=== PATIENT | female | born 1940 | race Caucasian/White ===

== ENCOUNTER 2017-06-23 07:00 | Observation (INO) | payer MEDICARE ==
--- NOTE | 2017-06-14 14:33 | HP ---
Amended report to correct patient account number. CC: Martha Mota MD; [facility] * PREOPERATIVE HISTORY AND PHYSICAL: DATE OF ADMISSION: 06/23/17 This patient is scheduled for same-day surgery with overnight extension by Dr. Jolly on 06/23/17. ATTENDING SURGEON: Renee Jolly MD * (dictated by Rosalia Jewell NP). CHIEF COMPLAINT: Right breast cancer and left breast cancer. HISTORY OF PRESENT ILLNESS: The patient is a 77-year-old female first evaluated by Dr. Jolly, 04/18/17. At that time, the patient complained of noticing a "dent" in the right breast. She also reported lumpiness on the lateral side of the right breast. She denied any breast pain. She does not have a family history of breast cancer. Menarche at age 13, menopause at age 42 was surgical. She had a hysterectomy and unilateral oophorectomy. First delivery was at age 17[address] Jolly examined the patient and noted a palpable right breast mass and performed core biopsy, which revealed invasive lobular adenocarcinoma. She was sent for an MRI of both breasts on 05/18/17. There was no radiographic abnormalities seen in the right breast, but the MRI revealed a left breast mass and therefore, she underwent left breast ultrasound- guided biopsy of a solid nodule at the 10 o'clock position, which revealed invasive ductal adenocarcinoma. Dr. Jolly reviewed the findings with the patient and has recommended right mastectomy and sono-guided needle localization excision of the left breast cancer and bilateral sentinel lymph node biopsies. Dr. Jolly described the nature of the surgical procedure, the rationale for the procedure, the relevant risks and benefits, the overnight stay in the hospital and the use of a Domenic-Locke drain. I also reviewed postoperative care and LOUISA drain management. The patient has had a chance to ask questions and stated that she understands the information and is satisfied with the answers given to her questions. She will sign surgical consent on the day of surgery. PAST MEDICAL HISTORY: Significant for hypertension, dyslipidemia, PAC's when she had a low potassium, COPD, former smoker, melanoma right lower extremity and mild cognitive impairment. PAST SURGICAL HISTORY: Hysterectomy and oophorectomy in 1982, left thumb surgery in 1984, excision of melanoma right lower extremity in 2006, YAG iridotomy both eyes in 2008, cataract extraction both eyes in 2013, and laparoscopic cholecystectomy in 2014. OBSTETRIC HISTORY: 2, para 2. MEDICATIONS: 1. Levothyroxine 100 mcg p.o. daily in the morning. 2. Nabumetone 750 mg one-half tablet b.i.d. 3. Omeprazole 20 mg p.o. b.i.d. 4. Amlodipine 5 mg p.o. daily in the evening. 5. Simvastatin 20 mg p.o. daily. 6. Orphenadrine 150 mg 1 tablet b.i.d. p.r.n., and that is a muscle relaxant. 7. Ibandronate 150 mg by mouth monthly. 8. Potassium 99 mg daily. 9. Cranberry supplement daily. 10. Vitamin C 1000 mg daily. 11. Vitamin D3, 1000 international units daily. 12. Calcium with vitamin D supplement daily. 13. She has a Ventolin inhaler 2 puffs 4 times a day p.r.n. and she is not currently using it. ALLERGIES: CHLORAPREP caused severe skin rash, status post laparoscopic cholecystectomy; VISIPAQUE caused rash; PROHANCE caused rash. FAMILY HISTORY: Mother with history of COPD, some type of cancer. Father with myocardial infarction. The patient's son has hemophilia and other male relatives are hemophilic. No known anesthesia complications or history of blood clots in the family. SOCIAL HISTORY: She is and lives alone, and is retired from human resources. She is a former smoker. She denies the use of alcohol or other substances; her son will be bringing her on the day of surgery. REVIEW OF SYSTEMS: Constitutional: No fevers, chills, excessive fatigue, or weight loss. Endocrine: No diabetes, she is on thyroid replacement. Hematologic: No easy bruising; she states that after excision of the melanoma, she had excessive bleeding and was readmitted to the hospital. She does not think she has ever had a blood transfusion. Respiratory: Former smoker, history of COPD, no chronic cough, no recent upper respiratory symptoms. Cardiovascular: She is followed by Dr. Pryor, please see the attached cardiology note from 06/07/17; she has had symptomatic PAC's in the past, improved with potassium corrected from 3.2, no recent PAC symptoms. She was having episodes of vague chest discomfort at rest for a few seconds at a time relieved with standing and stretching, it is not exertional, pleuritic or reproducible. There has been no edema, palpitations or syncope and her EKG in Dr. Pryor's office showed normal sinus rhythm. Echocardiogram in 2013 revealed LV size and function with an ejection fraction of 55% to 60%. She had a normal stress test in 2013. Gastrointestinal: No nausea, vomiting, diarrhea, chronic constipation or GI bleeding. Genitourinary: No dysuria. Musculoskeletal: Arthralgia of the pelvic region and thighs, osteoporosis and degenerative joint disease of the hand. Neurologic: Mild cognitive impairment followed routinely by Dr. Lopez with the last visit in May and his assessment was that she is stable from that point. Steady gait. No areas of focal weakness or numbness. General: No history of deep vein thrombosis or pulmonary embolism. No previous anesthesia complications. PHYSICAL EXAMINATION GENERAL SURVEY: The patient is a 77-year-old female, well developed, well nourished, in no acute distress. VITAL SIGNS: Height 59 inches, weight 165 pounds. Blood pressure 150/90, pulse 72 and regular, respiratory rate 16, and temperature 97.1. Body mass index 31. HEENT: Benign. NECK: Supple. No cervical lymphadenopathy. No thyromegaly. No carotid bruits. BREASTS: Symmetric, skin dimpling medial right breast; right dominant mass located at the 4 o'clock position. Left breast diffusely nodular. No well- defined masses. Nipples are everted bilaterally. No palpable supraclavicular lymphadenopathy. Adenopathy of axillary nodes bilaterally. LUNGS: Breath sounds bilaterally clear and equal. No wheezes or rales. HEART: Regular rate and rhythm. No murmurs or rubs. ABDOMEN: Active bowel sounds. Multiple well-healed surgical scars. Soft, nondistended, nontender throughout. No obvious masses, organomegaly or evidence of ventral hernia. PELVIC AND RECTAL EXAMS: Deferred. EXTREMITIES: Warm without edema or skin ulceration. NEUROLOGIC: Alert and oriented x3. Steady gait. SKIN: Warm, dry, and intact. IMPRESSION: Right breast invasive lobular adenocarcinoma, left breast invasive ductal adenocarcinoma. PLAN: Same-day surgery admission with overnight extension to Dr. Jolly's service on 06/23/17, for right mastectomy, sono-guided needle localization excision of left breast cancer and bilateral sentinel lymph node biopsies. LEDY JEWELL, PIPE INSULATOR HELPER [id number]/[facility] #: [id number] [facility]S HOSPITALAayush
[~2017-06-23 07:00] MED LIST: Acetaminophen TAB* 325 MG PO ONE; Buffered Lidocaine 0.9% SYRIN* 5 ML/SYR SYRINGE INTRADERM ONE; Dexamethasone IV* 4 MG/ML 1 ML (4 MG) IV SLOW PU ONE; Famotidine IV* 10 MG/ML 2 ML (20 mg) IV ONE; Heparin VIAL(*) 5000 UNITS/ML VIAL (FIVE THOUSAND) ONE
[2017-06-23] MEDS ORDERED: Acetaminophen TAB* 325 MG ONE (07:01)
[2017-06-23] MEDS ORDERED: Famotidine IV* 10 MG/ML 2 ML (20 mg) ONE (07:01)
[2017-06-23] MEDS ORDERED: ceFAZolin 2 GM PREMIX (*) 2 GM/50 ML BAG IVPB ONE (07:01)
[2017-06-23] MEDS ORDERED: Buffered Lidocaine 0.9% SYRIN* 5 ML/SYR SYRINGE ONE (07:01)
[2017-06-23] MEDS ORDERED: Dexamethasone IV* 4 MG/ML 1 ML (4 MG) ONE (07:01)
[2017-06-23] MEDS ORDERED: Lidocaine 2.5%/Prilocain 2.5%* 5 GM TUBE ONE (07:01)
--- NOTE | 2017-06-23 09:00 | RAD ---
CLINICAL HISTORY: Status post wire localization COMPARISON: June 01, 2017 TECHNIQUE: Left craniocaudal and lateral-medial mammograms were obtained. A computer-aided detection system (CAD) was also used for evaluation. FINDINGS: BREAST COMPOSITION: 2 There are scattered areas of fibroglandular density MASSES: Again noted is an ill-defined mass of the left inner breast. The wire] marker clip are noted in close proximity within the lesion. CALCIFICATIONS: There are typically benign calcifications. ASYMMETRY: There are no suspicious asymmetries. ARCHITECTURAL DISTORTION: There is no architectural distortion. SKIN: There is no skin thickening. LYMPH NODES: There is no lymphadenopathy. SPECIAL CASES: None OTHER FINDINGS: None. ASSESSMENT: THE LOCALIZATION WIRE IS LOCATED WITHIN THE LEFT BREAST LESION IMMEDIATELY ADJACENT TO THE BIOPSY MARKER CLIP RECOMMENDATION: Histology is pending ACR BIRADS Category 6: Known Biopsy-Proven Malignancy CPT II Codes: 7025F
--- NOTE | 2017-06-23 09:02 | RAD ---
PROCEDURE: Ultrasound-guided needle/wire localization of the left breast PREOPERATIVE DIAGNOSIS: Breast cancer POSTOPERATIVE DIAGNOSIS: Same COMPARISONS: June 01, 2017, May 10, 2017 RESEARCH INTERN: Sherri Rodriguez MD ANESTHESIA: Local anesthesia with 1% lidocaine without epinephrine FLUOROSCOPY TIME: None CONTRAST: None PROCEDURAL NARRATIVE: The procedure was explained to the patient who indicated understanding. Written and verbal informed consent was obtained. An opportunity was given to ask and answer questions. A timeout was performed. The patient was prepped and draped in the usual sterile fashion. Using ultrasound guidance, a needle/wire localization system was advanced to the target lesion in the left breast. Once position was confirmed, the needle was removed using pin pull technique. Post localization mammography was performed. The wound was dressed and the wire was secured. FINDINGS: Spot ultrasound images demonstrate the hookwire within the lobulated mass of the left breast in the 10:00 position 2 cm from the nipple. SPECIMENS: None COMPLICATIONS: None DISPOSITION: The patient tolerated the procedure well, without complications during or immediately following the procedure. The patient was sent to the nuclear medicine suite in good, stable condition. IMPRESSION: TECHNICALLY SUCCESSFUL, UNCOMPLICATED, ULTRASOUND-GUIDED WIRE LOCALIZATION OF THE LEFT BREAST NODULE. HISTOLOGY IS PENDING
[2017-06-23] MEDS ORDERED: Lidocaine 2% PF * 5 ML VIAL ONE (10:30)
[2017-06-23] MEDS ORDERED: Midazolam* 1 MG/ML 2 ML VIAL (2 MG) ONE (10:30)
[2017-06-23] MEDS ORDERED: Propofol* 10 MG/ML 20 ML BTL IV PUSH ONE (10:30)
[2017-06-23] MEDS ORDERED: fentaNYL* 50 MCG/ML 2 ML VIAL (100 MCG VIAL) ONE ×2 (10:31→16:19)
--- NOTE | 2017-06-23 10:35 | RAD ---
Amended report to correct patient account number. HISTORY: Breast cancer. Lymphoscintigraphy of the bilateral breasts for the purposes of sentinel node identification. COMPARISONS: Mammogram dated June 01, 2017 TECHNIQUE: Previous imaging was reviewed. The procedure was explained to the patient who indicated that she understood. Written and verbal informed consent was obtained , with an opportunity to ask and answer questions. This is a bilateral study. A timeout was performed. The patient was prepped and draped in the usual sterile fashion. Technetium 99m sulfur colloid was administered in a subdermal fashion in 4 divided aliquots in a 180 degree arc along the areolar margin of the left breast, centered on the position of the primary breast lesion, as indicated by previous imaging. Technetium 99m sulfur colloid was administered in a subdermal fashion in 4 divided aliquots in a 180 degree arc along the areolar margin of the right breast, centered on the position of the primary breast lesion, as indicated by the patient. Cine and planar imaging was performed. The first appearing axillary nodes were identified bilaterally with the overlying skin marked. DOSE: Technetium 99m sulfur colloid, 0.303 millicuries, injected at 9:10 AM on June 23, 2017 FINDINGS: Uptake is noted within a right axillary lymph node. The site of uptake was marked on the overlying skin. Uptake is noted within 2 distinct, adjacent, left axillary lymph nodes. The sites of uptake were marked on the overlying skin. OTHER: None IMPRESSION: TECHNICALLY SUCCESSFUL, UNCOMPLICATED, LYMPHOSCINTIGRAPHY OF THE LEFT BREAST AND OF THE RIGHT BREAST FOR THE PURPOSES OF SENTINEL NODE LOCALIZATION. CPT II Codes: 3570F MTDD
[2017-06-23] MEDS ORDERED: Bupivacaine 0.25% SDV* 30 ML ONE (11:36)
[2017-06-23] MEDS ORDERED: HYDROmorphone INJ* 1 MG/ML CARPUJECT SYRINGE ONE ×2 (12:47→16:19)
[2017-06-23] MEDS ORDERED: Ketorolac INJ* 30 MG/ML 1 ML VIAL ONE (13:18)
[2017-06-23] MEDS ORDERED: Ondansetron INJ* 2 MG/ML VIAL ONE (13:18)
[2017-06-23] MEDS ORDERED: Methylergonovine INJ* 0.2 MG/ML 1ML AMP ONE (13:50)
[2017-06-23] MEDS ORDERED: Methylene Blue 0.5 %* 50 MG/10 ML AMP IV ONE (13:51)
--- NOTE | 2017-06-23 15:38 | PN ---
Progress Note - Progress Note Date of Service: 06/23/17 Note: Brief Operative Note: Pre-op Dx: Right and Left breast cancers Postop Dx: same Procedure: Right mastectomy with sentinel lymph node biopsy; Left breast lumpectomy with attempted sentinel lymph node biopsy Anesthesia: GET (LMA) Surgeon: Rik Asst: ANNAMARIE Rod; RETA Wetzel Fluids: 2000 ml LR EBL: 100 ml Specimen: Right breast and SLN; Left breast lump and axillary contents Drains: 1 LOUISA Findings: dictated
[2017-06-23] MEDS ORDERED: Albuterol HFA INHALER* 8 gm MDI INH PRN (16:12)
[2017-06-23] MEDS ORDERED: Acetaminophen TAB* 325 MG PO PRN (16:23)
[2017-06-23] MEDS ORDERED: HYDROcodone/ACETAMIN 5-325 MG* 1 TAB PO PRN (16:23)
[2017-06-23] MEDS ORDERED: HYDROmorphone INJ* 1 MG/ML CARPUJECT SYRINGE IV SLOW PU PRN ×2 (16:24)
[2017-06-23] MEDS ORDERED: Ondansetron INJ* 2 MG/ML VIAL IV PRN (16:26)
[2017-06-23] MEDS: Omeprazole CAP* 20 MG PO SCH (21:25)
[2017-06-23] MEDS: Heparin VIAL(*) 5000 UNITS/ML VIAL (FIVE THOUSAND) SUBCUT SCH (21:26)
--- NOTE | 2017-06-24 01:09 | OP ---
CC: [facility]; Dr. Amador Camacho; Dr. Martha Mota OPERATIVE REPORT: DATE OF OPERATION: 06/23/17 DATE OF : 40 SURGEON: Renee Jolly MD PT SITTER: ANNAMARIE Winters and ANNAMARIE Wetzel student. PRE-OP DIAGNOSIS: Bilateral breast cancer. POST-OP DIAGNOSIS: Bilateral breast cancer. OPERATIVE PROCEDURE: Left needle localization and excision of breast cancer and sentinel lymph node and right mastectomy and sentinel lymph node. INDICATIONS: Ms. Hollins is a 77-year-old female who has been diagnosed with bilateral breast cancer recently, prompting the plan for surgical intervention. On the morning of the surgery, she underwen t needle localization without difficulty and sentinel lymph node localization apparently without diff iculty. DESCRIPTION OF PROCEDURE: She was then brought to the operating room. She was placed on the OR tabl e in the supine position and given general anesthesia. The entire chest was prepped and draped in th e usual sterile fashion, taking care not to dislodge the localizing wire. After infiltrating with lo zay anesthetic, a curvilinear elliptical incision encompassing the wire and the previous biopsy site on the left breast was undertaken. This was done in a curvilinear elliptical fashion and the subcuta neous tissue was divided with electrocautery in the direction of the tip of the wire. Initially, the tissue was divided across what appeared to be a mass without encountering the wire, so additional ti ssue was taken posteromedial to the first specimen. It should be mentioned that in the process of do ing this, the wire was encountered and withdrawn through the first specimen such that it was only in the second specimen. These specimens were handed off for radiologic confirmation and eventually repo rt came back that one of them contained the majority of the cancer. Hemostasis was achieved with luz marina ctrocautery and then attention was turned to trying to locate the sentinel lymph node. Here it was n oted that the radioactive tracer did not appear to have very strong effect in the axilla, but diligen t search was made. This was despite the fact that the equipment repeatedly failed during the process and was only intermittently working and we were fairly certain that there was no sentinel lymph node . In the process of determining, there was no sentinel node identified. Additional axillary content s have been encountered and removed and ultimately these were sent as the axillary contents. Once it was ascertained that hemostasis was adequate, closure of this incision was accomplished and it shoul d be mentioned that prior to closing, clips were placed in the breast cavity to dejon its confluence a nd that clips have been used to control lymphatic and blood vessels in the axilla and furthermore it should be mentioned that the axilla was reached through the breast incision. Closure was accomplishe d with 3-0 Vicryl in the subcutaneous layer and the skin was closed with 4-0 Monocryl. Steri-Strips were applied at the end of the case. Attention was turned to the right breast. An incision was made along the line that had been marked preoperatively to encompass the nipple areolar complex. Subcuta neous tissue was then divided using electrocautery medially to the sternum, superiorly to the clavicl e and laterally to the latissimus dorsi muscle. A second incision was made to complete the ellipse a round the nipple areolar complex with again flaps being developed using electrocautery from the media l extent of the sternum to the rectus muscle inferiorly and the latissimus dorsi muscle laterally. T he breast was then elevated off the chest wall using electrocautery. Once the axillary region was re ached, a search was made for a sentinel node. [place] node was noted to be in the axillary tail of the breast with rather low counts of 122, but since the difficulty identifying the lymph node, sentin el lymph node on the left side had been a problem. Blue dye was injected into the right breast prior to making the incision and in this area of the very faint sentinel lymph node activity was blue lymp hatic channel suggesting that this was indeed the sentinel node. Completion of the dissection of the axillary tail was accomplished with electrocautery. The breast was marked in the usual fashion and handed off as a specimen and the sentinel node was identified as a specimen. Its ex vivo counts were 85. A LOUISA drain was placed into the mastectomy site emerging from the stab wound in the anterior inf erior axillary line and closure was accomplished using 2-0 Polysorb to reapproximate the flaps of the mastectomy and 4-0 Monocryl to close the skin of the incision. Prior to closing, some excess skin w as taken to minimize the dog ears. Steri-Strips and dry fluffy dressing were applied to this site. A dry sterile dressing was applied to the left side using Tegaderm to hold it in place. Charan wrap was wrapped around the chest wall. All sponge and instrument counts were correct. The patient tolerated the procedure well and was transferred to recovery in a stable condition. [id number]/[facility] #: [id number]
[2017-06-24] MEDS ORDERED: Levothyroxine TAB* 100 MCG TAB PO SCH (06:00)
[2017-06-24] MEDS: Heparin VIAL(*) 5000 UNITS/ML VIAL (FIVE THOUSAND) SUBCUT SCH (06:29)
[2017-06-24 08:12] VITALS: BP 118/62
--- NOTE | 2017-06-24 08:24 | PN ---
Progress Note - Progress Note Date of Service: 06/24/17 Note: Surgery Ms. Hollins reports she is doing well. She had some nausea last night, but feels better this morning. She has not had much to eat yet though. Vital Signs 06/23/17 06/23/17 06/23/17 18:13 19:15 19:41 Temperature 97.4 F 97.6 F Pulse Rate 88 88 Respiratory 16 16 18 Rate Blood Pressure 126/72 140/74 (mmHg) O2 Sat by Pulse 93 90 Oximetry 06/23/17 06/23/17 06/23/17 20:00 20:06 21:34 Temperature 96.6 F Pulse Rate 120 82 Respiratory 18 17 Rate Blood Pressure 156/85 (mmHg) O2 Sat by Pulse 95 Oximetry 06/23/17 06/23/17 06/24/17 21:58 23:57 03:19 Temperature 97.2 F 97.9 F 98.2 F Pulse Rate 88 88 88 Respiratory 16 16 16 Rate Blood Pressure 127/67 154/82 135/66 (mmHg) O2 Sat by Pulse 96 94 93 Oximetry 06/24/17 07:31 Temperature 98.5 F Pulse Rate 88 Respiratory 16 Rate Blood Pressure 118/62 (mmHg) O2 Sat by Pulse 94 Oximetry Mastectomy site is clean and dry; flaps are viable. Left breast cancer excision site dressing is intact. LOUISA: serosanguinous fluid Intake & Output 06/23/17 06/24/17 06/24/17 22:59 06:59 14:59 Intake Total 602 885 Output Total 293 215 250 Balance 309 670 -250 Intake: IV Fluids 302 885 LR 302 885 Oral 300 0 Output: LOUISA #1 93 15 Urine 200 200 250 Other: # Bowel Movements 0 A/P: POD#1 s/p right mastectomy, left lumpectomy; doing well, can go home. She has appt. to f/u next week. CLFoster
[2017-06-24] MEDS: Omeprazole CAP* 20 MG PO SCH (08:32)
[2017-06-24] MEDS ORDERED: amLODIPine TAB* 5 MG PO SCH (09:00)
== END 2017-06-24 11:05 | disposition home or self-care (01) ==
LOC: OR 07:00 → SSU 15:48
PROVIDERS: ADMIT Surgery; ATTEND Surgery
PROC: 0HTT0ZZ Resection of Right Breast, Open Approach (ICD-10-PCS; principal; 2017-06-23)
PROC: 07T50ZZ Resection of Right Axillary Lymphatic, Open Approach (ICD-10-PCS; 2017-06-23)
PROC: 0HBU0ZZ Excision of Left Breast, Open Approach (ICD-10-PCS; 2017-06-23)
PROC: 07T60ZZ Resection of Left Axillary Lymphatic, Open Approach (ICD-10-PCS; 2017-06-23)
DX: C50.912 Malignant neoplasm of unspecified site of left female breast (principal); C50.911 Malignant neoplasm of unspecified site of right female breast; I10 Essential (primary) hypertension; E78.5 Hyperlipidemia, unspecified; J44.9 Chronic obstructive pulmonary disease, unspecified; Z87.891 Personal history of nicotine dependence; Z85.820 Personal history of malignant melanoma of skin; G31.84 Mild cognitive impairment of uncertain or unknown etiology; Z79.899 Other long term (current) drug therapy
CPT/HCPCS: 78195; 88307; 88342; 96372; 96374; A9270-GY; A9541; G0206-LT; G0378; J0690; J1100; J1170; J1644; J1885; J2210; J2250; J2405; J2704; J3010

== ENCOUNTER 2017-09-04 03:29 | Inpatient (IN) | payer MEDICARE ==
--- OUTSIDE RECORDS SUMMARY | 2017-09-04 03:44 | XMS REPORT ---
:1940 External Reference #:[id number] Author Organization [facility] Address [address] [address] Phone [phone] Care Team Providers Name Role Phone Martha Mota MD Primary Care Physician Unavailable Payers Type Date Identification Numbers Payment Subscriber Provider Health Maintenance Effective: Policy Number: Medicare Blue Shanti Blackwood (O) 07/03/2012 [id number] o PayID: [id number] [address] [address] [place] [address] Problems Date Description Provider Status Onset: 03/29/2012 Hypothyroidism Jennie Frias M.D. Active Onset: 03/29/2012 Disorder of lipid metabolism Jennie Frias M.D. Active Onset: 03/29/2012 Essential hypertension Jennie Frias M.D. Active Onset: 03/29/2012 Osteoporosis Jennie Frias M.D. Active Onset: 10/09/2012 Degenerative joint disease of hand Silverio Avelar M.D. Active Onset: 05/28/2013 Arthralgia of the pelvic region and Silverio Avelar M.D. 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[facility] [employer] [facility] ETOH Use Denies alcohol use Smoking Patient is a former smoker Recreational Drug Use Never Used Drugs Daily Caffeine Consumes on average 2 cups of regular coffee per day Exercise Type/Frequency Exercises regularly Allergies, Adverse Reactions, Alerts Date Description Reaction Status Severity Comments 04/26/2016 Visipaque Contact dermatitis active CT dye 04/18/2017 Prohans active 02/02/2012 Pro Hands Skin Flush inactive Medications Medication Date Status Form Strength Qnty SIG Indications Ordering Provider Silvadene 07/07 Active Cream 1% 50gm use as Rosalia directed Tesfaye Banks NP Calcium 600 With 10/10 Active Chewtabs 600-400mg 60uni take 1 by Other Vitamin D /2012 -Unit ts mouth daily Ordering Provider Nabumetone 10/09 Active Tablets 750mg 60tab Take 715.94 s One-Half Lashell Avelar Tablet By Mouth Twice Daily Vitamin D-3 Active Tablets 1000Unit 90tab 1 po qd Unknown / s Levothyroxine Active Tablets 100mcg 1mont 1 po qd Unknown Sodium / h Omeprazole Active Capsules 20mg 90cap 1 po qd Unknown /0000 DR s Amlodipine Active Tablets 5mg 14tab 1 po qd Unknown Besylate / s Simvastatin Active Tablets 20mg 90tab 1 po qd Other /0000 s Ordering Provider Orphenadrine Active Tablets 150mg 1 tab up to Unknown Citrate ER /0000 ER 12HR 2x per day Ibandronate Active Tablets 150mg take 1 Unknown Sodium /0000 tablet by mouth once a month Ventolin HFA Active Aerosol 108(90Bas 2 puffs by Unknown /0000 e) mouth four mcg/Act times a day as needed Vitamin C Active Tablets 1000mg 1 by mouth Unknown /0000 every day Cranberry Active 1 daily Unknown /0000 Potassium 00 Active Tablets 99mg once a day Unknown / Biotin Active Capsules 1mg take one Unknown /0000 capsule/tabl et daily by mouth Vitamin B12 Active Tablets 1000mcg 1 by mouth Unknown /0000 ER every day Prednisone 05/11 Hx Tablets 50mg 3tabs 1 by mouth Renee Melgoza 13 hours MD Rik before mri contrast, then 1 by mouth 7 hours before mri contrast, then 1 by mouth 1 hour before mri contr Biotin 10/10 Hx Tablets 1000mcg once a day Ordering - Provider 05/22 Ketoconazole 10/10 Hx Cream 2% 30gm apply thin film twice Ordering - daily Provider 05/28 Acetaminophen/Co 05/03 Hx Tablets 300-30mg 60tab 1 tab po bid 840.9 Jennie freeman #3 /2011 s as needed Rodriguez, - for pain M.D. 10/10 Calcium + D Hx Tablets 600-200mg 60tab 2 po qd Unknown /0000 -Unit s - 10/10 Stool Softener Hx Capsules 100mg 1 po bid Unknown /0000 - 04/25 Biotin Hx Tablets 5000mcg 1 po qd Unknown /0000 - 10/10 Fish Oil Hx Capsules 1000mg 60cap 1 po qd Unknown /0000 s - 05/22 Clobetasol Hx Cream 0.05% 60gm apply thin Unknown /0000 film twice - daily for 10/10 not more than 2 weeks then two weeks off and may start again if needed Premarin Hx Cream 0.625mg/G 42.50 1 Unknown /0000 M 0gm application - pv 2 x 05/28 Cyclobenzaprine Hx Tablets 5mg 30tab 1 by mouth Unknown HCL /0000 s q8has needed - for back 10/10 pain Vitamin B-12 Hx Tablets 1000mcg 1 by mouth Unknown /0000 every day - 05/22 Medications Administered in Office Medication Date Status Form Strength Qnty SIG Indications Ordering Provider Technetium TC Administered Injection [facility] Per Unit Dose FSCAI Up To 40 Millicuries Vital Signs Date Vital Result Comment 08/11/2017 Heart Rate 100 /min Respiratory Rate 18 /min Body Temperature 96.5 F 08/08/2017 Heart Rate 106 /min Respiratory Rate 16 /min Body Temperature 96.7 F 08/04/2017 Body Temperature 98.1 F 08/01/2017 Body Temperature 96.7 F 07/28/2017 Body Temperature 97.6 F 07/25/2017 Heart Rate 90 /min Respiratory Rate 18 /min Body Temperature 97.9 F 07/21/2017 Heart Rate 102 /min Respiratory Rate 16 /min Body Temperature 98.5 F 07/18/2017 Heart Rate 76 /min Respiratory Rate 16 /min Body Temperature 96.8 F 07/14/2017 Heart Rate 90 /min Respiratory Rate 18 /min Body Temperature 97.6 F 07/11/2017 Heart Rate 96 /min Respiratory Rate 18 /min Body Temperature 97.9 F 07/07/2017 Heart Rate 60 /min Respiratory Rate 16 /min Body Temperature 97.5 F 07/04/2017 Heart Rate 100 /min Respiratory Rate 16 /min Body Temperature 96.2 F 06/27/2017 Heart Rate 78 /min Respiratory Rate 18 /min Body Temperature 97.7 F 06/12/2017 Heart Rate 72 /min BP Systolic 150 mmHg BP Diastolic 90 mmHg Respiratory Rate 16 /min Body Temperature 97.1 F 06/07/2017 Height 59 inches 4'11" Weight 165.00 lb Heart Rate 88 /min BP Systolic Sitting 132 mmHg Lue large cuff BP Diastolic Sitting 74 mmHg Lue large cuff BP Systolic Standing 124 mmHg Lue BP Diastolic Standing 72 mmHg Lue Respiratory Rate 16 /min BMI (Body Mass Index) 33.3 kg/m2 Ejection Fraction 55-60% 02/07/13 05/26/2017 Heart Rate 90 /min BP Systolic Sitting 122 mmHg BP Diastolic Sitting 78 mmHg Respiratory Rate 18 /min Body Temperature 97.2 F 05/23/2017 Height 59 inches 4'11" Weight 160.00 lb Heart Rate 74 /min BP Systolic Sitting 130 mmHg BP Diastolic Sitting 72 mmHg Respiratory Rate 16 /min BMI (Body Mass Index) 32.3 kg/m2 05/02/2017 Heart Rate 62 /min Respiratory Rate 16 /min Body Temperature 97.9 F 04/26/2017 Heart Rate 90 /min BP Systolic Sitting 134 mmHg BP Diastolic Sitting 82 mmHg Respiratory Rate 18 /min Body Temperature 97.6 F 04/18/2017 Height 60 inches 5'0" Weight 160.00 lb Heart Rate 62 /min BP Systolic 130 mmHg BP Diastolic 74 mmHg Respiratory Rate 16 /min Body Temperature 97.9 F BMI (Body Mass Index) 31.2 kg/m2 01/23/2017 Height 59 inches 4'11" Weight 162.00 lb Heart Rate 82 /min BP Systolic Sitting 130 mmHg BP Diastolic Sitting 68 mmHg Respiratory Rate 15 /min BMI (Body Mass Index) 32.7 kg/m2 07/14/2016 Weight 164.00 lb Heart Rate 104 /min BP Systolic 136 mmHg Rue reg cuff BP Diastolic 70 mmHg Rue reg cuff BP Systolic Sitting 140 mmHg Lue reg cuff BP Diastolic Sitting 76 mmHg Lue reg cuff BP Systolic Standing 138 mmHg Lue reg cuff BP Diastolic Standing 80 mmHg Lue reg cuff Respiratory Rate 17 /min 04/26/2016 Height 59 inches 4'11" Weight 160.00 lb Heart Rate 80 /min BP Systolic Sitting 124 mmHg BP Diastolic Sitting 72 mmHg BMI (Body Mass Index) 32.3 kg/m2 05/28/2013 Weight 170.00 lb Heart Rate 68 /min BP Systolic 130 mmHg BP Diastolic 74 mmHg 11/22/2012 Height 59 inches 4'11" Weight 167.00 lb Heart Rate 80 /min BP Systolic Sitting 132 mmHg BP Diastolic Sitting 71 mmHg BMI (Body Mass Index) 33.7 kg/m2 10/09/2012 Height 59 inches 4'11" Weight 165.00 lb Heart Rate 81 /min BP Systolic Sitting 124 mmHg BP Diastolic Sitting 68 mmHg BMI (Body Mass Index) 33.3 kg/m2 05/03/2012 Height 59 inches 4'11" Weight 166.00 lb Heart Rate 96 /min BP Systolic Sitting 138 mmHg BP Diastolic Sitting 80 mmHg BMI (Body Mass Index) 33.5 kg/m2 04/10/2012 Height 59.25 inches 4'11.25" Weight 167.00 lb Heart Rate 100 /min BP Systolic Sitting 132 mmHg BP Diastolic Sitting 78 mmHg BMI (Body Mass Index) 33.4 kg/m2 02/02/2012 Height 59.25 inches 4'11.25" Weight 168.00 lb Heart Rate 83 /min BP Systolic Sitting 131 mmHg BP Diastolic Sitting 89 mmHg BMI (Body Mass Index) 33.6 kg/m2 Results Test Date Test Result H/L Range Note Basic Metabolic Panel 06/12/2017 Sodium 139 mmol/L 133-145 Potassium 3.8 mmol/L 3.5-5.0 Chloride 100 mmol/L Low 101-111 Co2 Carbon Dioxide 33 mmol/L High 22-32 Anion Gap 6 mmol/L 2-11 Glucose 84 mg/dL 70-100 Blood Urea Nitrogen 21 mg/dL 6-24 Creatinine 0.94 mg/dL 0.51-0.95 BUN/Creatinine Ratio 22.3 High 8-20 Calcium 9.9 mg/dL 8.6-10.3 Egfr Non- 57.7 >60 Egfr 74.3 >60 1 CBC Auto Diff 06/12/2017 White Blood Count 7.7 10^3/uL 3.5-10.8 Red Blood Count 4.31 10^6/uL 4.0-5.4 Hemoglobin 13.1 g/dL 12.0-16.0 Hematocrit 40 % 35-47 Mean Corpuscular Volume 92 fL 80-97 Mean Corpuscular Hemoglobin 31 pg 27-31 Mean Corpuscular HGB Conc 33 g/dL 31-36 Red Cell Distribution Width 14 % 10.5-15 Platelet Count 253 10^3/uL 150-450 Mean Platelet Volume 8 um3 7.4-10.4 Abs Neutrophils 4.5 10^3/uL 1.5-7.7 Abs Lymphocytes 2.3 10^3/uL 1.0-4.8 Abs Monocytes 0.8 10^3/uL 0-0.8 Abs Eosinophils 0.1 10^3/uL 0-0.6 Abs Basophils 0 10^3/uL 0-0.2 Abs Nucleated RBC 0 10^3/uL Granulocyte % 58.3 % 38-83 Lymphocyte % 30.0 % 25-47 Monocyte % 9.8 % High 1-9 Eosinophil % 1.5 % 0-6 Basophil % 0.4 % 0-2 Nucleated Red Blood Cells % 0 Laboratory test 06/01/2017 Surgical Pathology SEE RESULT BELOW 2, 3 finding Comp Metabolic Panel 05/04/2017 Sodium 139 mmol/L 133-145 Potassium 3.9 mmol/L 3.5-5.0 Chloride 101 mmol/L 101-111 Co2 Carbon Dioxide 33 mmol/L High 22-32 Anion Gap 5 mmol/L 2-11 Glucose 91 mg/dL 70-100 Blood Urea Nitrogen 14 mg/dL 6-24 Creatinine 0.96 mg/dL High 0.51-0.95 BUN/Creatinine Ratio 14.6 8-20 Calcium 9.9 mg/dL 8.6-10.3 Total Protein 6.6 g/dL 6.4-8.9 Albumin 3.8 g/dL 3.2-5.2 Globulin 2.8 g/dL 2-4 Albumin/Globulin Ratio 1.4 1-3 Total Bilirubin 0.40 mg/dL 0.2-1.0 Alkaline Phosphatase 48 U/L 34-104 Alt 12 U/L 7-52 Ast 15 U/L 13-39 Egfr Non- 56.4 >60 Egfr 72.5 >60 4 CBC Auto Diff 05/04/2017 White Blood Count 8.5 10^3/uL 3.5-10.8 Red Blood Count 4.44 10^6/uL 4.0-5.4 Hemoglobin 13.4 g/dL 12.0-16.0 Hematocrit 41 % 35-47 Mean Corpuscular Volume 92 fL 80-97 Mean Corpuscular Hemoglobin 30 pg 27-31 Mean Corpuscular HGB Conc 33 g/dL 31-36 Red Cell Distribution Width 14 % 10.5-15 Platelet Count 253 10^3/uL 150-450 Mean Platelet Volume 8 um3 7.4-10.4 Abs Neutrophils 5.5 10^3/uL 1.5-7.7 Abs Lymphocytes 2.6 10^3/uL 1.0-4.8 Abs Monocytes 0.3 10^3/uL 0-0.8 Abs Eosinophils 0 10^3/uL 0-0.6 Abs Basophils 0 10^3/uL 0-0.2 Manual Differential 05/04/2017 Neutrophil % 65 % 38-83 Lymphocytes % 30 % 25-47 Monocytes % 4 % 0-13 Reactive Lymph % 1 % 0-6 RBC Morphology Normal Normal Laboratory test finding 05/04/2017 Pathologist Review (SEE NOTE) 5 Laboratory test finding 04/26/2017 Surgical Pathology SEE RESULT BELOW 6, 7 Cytology Non-Shoe Folder <pending> 6 Laboratory test finding 04/18/2017 Cytology Non-Shoe Folder SEE RESULT BELOW 8 Surgical Pathology <pending> Basic Metabolic Panel 07/19/2016 Sodium 138 mmol/L 133-145 Potassium 3.9 mmol/L 3.5-5.0 Chloride 102 mmol/L 101-111 Co2 Carbon Dioxide 32 mmol/L 22-32 Anion Gap 4 mmol/L 2-11 Glucose 109 mg/dL High 70-100 Blood Urea Nitrogen 15 mg/dL 6-24 Creatinine 0.84 mg/dL 0.51-0.95 BUN/Creatinine Ratio 17.9 8-20 Calcium 9.7 mg/dL 8.6-10.3 Egfr Non- 65.9 >60 Egfr 84.8 >60 9 Basic Metabolic Panel 05/01/2013 Sodium 138 mmol/L 133-145 Potassium 4.3 mmol/L 3.5-5.0 Chloride 102 mmol/L 101-111 Co2 Carbon Dioxide 33.0 mmol/L High 22-32 Anion Gap 3.0 mmol/L 2-11 Glucose 104 mg/dL High 70-100 Blood Urea Nitrogen 14 mg/dL 6-24 Creatinine 0.90 mg/dL 0.50-1.40 BUN/Creatinine Ratio 15.6 8-20 Calcium 9.4 mg/dL 8.1-9.9 Egfr Non- 61.4 >60 Egfr 78.9 >60 10 Laboratory test finding 05/01/2013 Erythrocyte Sed Rate 20 mm/Hr 0-40 C Reactive Protein < 0.5 mg/dL Less than 0.5 Laboratory test finding 10/09/2012 Rheumatoid Factor <15 IU/mL <15 11 CBC With Manual Diff 10/09/2012 White Blood Count 8.6 10^3/uL 4.8-10.8 Red Blood Count 4.47 10^6/uL 4.0-5.4 Hemoglobin 12.6 g/dL 12.0-16.0 Hematocrit 39 % 35-47 Mean Corpuscular Volume 87 fL 80-97 Mean Corpuscular Hemoglobin 28 pg 27-31 Mean Corpuscular HGB Conc 32 g/dL 31-36 Red Cell Distribution Width 16 % High 10.5-15 Platelet Count 251 10^3/uL 150-450 Mean Platelet Volume 8 um3 7.4-10.4 Abs Neutrophils 5.8 10^3/uL 1.5-7.7 Abs Lymphocytes 2.4 10^3/uL 1.0-4.8 Abs Monocytes 4.3 10^3/uL High 0-0.8 Abs Eosinophils 0.1 10^3/uL 0-0.6 Abs Basophils 0 10^3/uL 0-0.2 Abs Nucleated RBC 0 10^3/uL Neutrophil % 59 % 38-83 Band % 5 % 0-8 Lymphocytes % 27 % 25-47 Monocytes % 8 % 0-13 Eosinophils % 1 % 0-6 RBC Morphology Normal Normal Comp Metabolic Panel 10/09/2012 Sodium 141 mmol/L 133-145 Potassium 4.0 mmol/L 3.5-5.0 Chloride 103 mmol/L 101-111 Co2 Carbon Dioxide 31.0 mmol/L 22-32 Anion Gap 7.0 mmol/L 2-11 Glucose 85 mg/dL 70-100 Blood Urea Nitrogen 13 mg/dL 6-24 Creatinine 0.80 mg/dL 0.50-1.40 BUN/Creatinine Ratio 16.3 8-20 Calcium 9.8 mg/dL 8.1-9.9 Total Protein 7.2 g/dL 6.2-8.1 Albumin 3.8 g/dL 3.2-5.2 Globulin 3.4 g/dL 2-4 Albumin/Globulin Ratio 1.1 1-3 Total Bilirubin 0.7 mg/dL 0.4-1.5 Alkaline Phosphatase 63 U/L 30-110 Alt 14 U/L 14-54 Ast 21 U/L 12-42 Egfr Non- 70.5 >60 Egfr 90.7 >60 12 Laboratory test 10/09/2012 C Reactive Protein < 0.5 mg/dL Less than 0.5 finding Cyclic Citrullinated Pept IgG <15.6 U 13 Erythrocyte Sed Rate 24 mm/Hr 0-40 Lipid Profile (Trig/Chol/HDL) 04/30/2012 Triglycerides 124 mg/dL 40-200 Cholesterol 157 mg/dL Less than 200 14 HDL Cholesterol 40 mg/dL 40-60 15 Cholesterol/HDL Ratio 3.9 AVERAGE 1-4.44 LDL Cholesterol 92.2 mg/dL Less Than 100 1 Because ethnic data is not always readily available, this report includes an eGFR for both -Americans and non- Americans. The National Kidney Disease Education Program (NKDEP) does not endorse the use of the MDRD equation for patients that are not between the ages of 18 and 70, are , have extremes of body size, muscle mass, or nutritional status, or are non- or non-. According to the National Kidney Foundation, irrespective of diagnosis, the stage of the disease is based on the level of kidney function: Stage Description GFR(mL/min/1.73 m(2)) 1 Kidney damage with normal or decreased GFR 90 2 Kidney damage with mild decrease in GFR 60-89 3 Moderate decrease in GFR 30-59 4 Severe decrease in GFR 15-29 5 Kidney failure <15 (or dialysis) 2 [id number] 3 SEE RESULT BELOW Name: SHANTI HOLLINS : [address]: Renee Jolly MD Acct: [id number] Unit: [id number] AGE: 77 Location: [facility] Re06/01/17 SEX: F Status: REG REF SPEC: [id number] JAZZY: 06/01/[address] [facility] [address]: Kvng Simon MD REQ: [id number] RECD: 06/01/17 STATUS: GABY LIZ DR: Renee Jolly MD _ ORDERED: LEVEL 4, IMMUNO-QUANT/3 COMMENTS: [id number] Addendum: The following immunochemical stains are performed with appropriate controls . ER positive, 3+ greater than 90% KY positive, 2?3 plus, 70% HER-2 negative (0+) Addendum Signed (signature on file) Reynaldo Altamirano MD 1139 FINAL DIAGNOSIS Breast, left, 10:00, 2 cm from nipple, core biopsy: -- Invasive ductal adenocarcinoma of breast, with: Size: 8.2 mm. Tumor extent and distribution: Diffusely involves 5 of 5 sampled cores. Estimated Consuelo grade: Estimated tubule formation: 3. Estimated nuclear grade: 3. Estimated mitotic count: 2. Combined [place] histologic grade: 3/3. (8/9 points). Lymphovascular invasion: Not identified. Ductal Carcinoma in situ (DCIS): Not identified. ER, KY, and Her2/Brice by immunohistochemistry with appropriate controls: ER: Pending; results will be reported in an addendum. KY: Pending; results will be reported in an addendum. Her2/Brice: Pending; results will be reported in an addendum. Microcalcifications: Not identified. Other findings: None. Predicted pTNM histopathologic stage: at least pT1b. COMMENT: Dr. Altamirano reviewed this case in intradepartmental CONTINUED ON NEXT PAGE * ML=Testing performed at Main Lab DEPARTMENT OF PATHOLOGY, [address] [place] [address] Reynaldo Altamirano M.D. Director [facility] # [id number] RUN DATE: 06/05/17 [facility] LAB LIVE PAGE 2 Patient: SHANTI HOLLINS [id number] (Continued) SPECIMEN COMMENTS (Continued) consultation and agrees with the diagnosis. CLINICAL HISTORY 1.5 cm mass left breast, likely invasive ductal carcinoma PRE-OPERATIVE DIAGNOSIS Left breast mass at 10:00 2 cm from nipple 1.4 x 0.8 x 1.3 cm GROSS DESCRIPTION The specimen is received in formalin labeled, Left Breast Core Biopsies, and consists of five lynn-yellow fibrofatty soft tissue cores ranging from 0.9 x 0.2 cm to 1.2 x 0.2 cm. Entirely submitted, one cassette. Signed (signature on file) Monica Whaley MD 07/19 1032 END OF REPORT * ML=Testing performed at Main Lab DEPARTMENT OF PATHOLOGY, [address] [place] [address] Reynaldo Altamirano M.D. Director [facility] # [id number] 4 Because ethnic data is not always readily available, this report includes an eGFR for both -Americans and non- Americans. The National Kidney Disease Education Program (NKDEP) does not endorse the use of the MDRD equation for patients that are not between the ages of 18 and 70, are , have extremes of body size, muscle mass, or nutritional status, or are non- or non-. According to the National Kidney Foundation, irrespective of diagnosis, the stage of the disease is based on the level of kidney function: Stage Description GFR(mL/min/1.73 m(2)) 1 Kidney damage with normal or decreased GFR 90 2 Kidney damage with mild decrease in GFR 60-89 3 Moderate decrease in GFR 30-59 4 Severe decrease in GFR 15-29 5 Kidney failure <15 (or dialysis) 5 Normal smear. Reviewed by Monica Whaley MD 6 [id number] SEE RESULT BELOW Name: SHANTI HOLLINS : [address]: Renee Jolly MD Acct: [id number] Unit: [id number] AGE: 77 Location: [facility] Re04/26/17 SEX: F Status: REG REF SPEC: [id number] JAZZY: 04/26/17-[address]: Renee Jolly MD REQ: [id number] RECD: 04/26/17 STATUS: SOUT _ ORDERED: LEVEL 4, IMMUNO-FIRST, IMMUNO-ADDL, IMMUNO-QUANT/3 COMMENTS: [id number] Addendum: The following immunochemical stains are performed with appropriate controls. ER positive, 3+, 90% of tumor cells KY positive, 1-2 plus, 10% of tumor cells HER-2 negative (1+) E-Cadherin weak focal staining High molecular weight keratin positive, strong diffuse staining in tumor cells These findings support the above rendered diagnosis of invasive lobular carcinoma. Addendum Signed (signature on file) Reynaldo Altamirano MD 0934 FINAL DIAGNOSIS Breast, right medial, core biopsy: -- Invasive lobular adenocarcinoma of breast, with: Size: 2 mm greatest single measured span. Tumor extent and distribution: Multiple foci of interspersed malignant elements occupying 10% of total core volume. Estimated [place] grade: Estimated tubule formation: 3 Estimated nuclear grade: 1. Estimated mitotic count: 1. Combined [place] histologic grade: 1/3. (5/9 points). Lymphovascular invasion: Not seen. Ductal Carcinoma in situ (DCIS): Not seen. ER, KY, and Her2/Brice by immunohistochemistry with appropriate controls: ER: Pending; results will be reported in an addendum. KY: Pending; results will be reported in an addendum. Her2/Brice: Pending; results will be reported in an addendum. Microcalcifications: Present, in association with single focus of atypical ductal hyperplasia. CONTINUED ON NEXT PAGE * ML=Testing performed at Main Lab DEPARTMENT OF PATHOLOGY, [address] [place] [address] Reynaldo Altamirano M.D. Director [facility] # [id number] RUN DATE: 05/01/17 [facility] LAB LIVE PAGE 2 Patient: SHANTI HOLLINS [id number] (Continued) FINAL DIAGNOSIS (Continued) Other findings: Two minute foci of atypical ductal hyperplasia with associated cellular debris and microcalcification. Predicted pTNM histopathologic stage: at least pT 1a. Comment: The biopsy cores demonstrates subtle findings with elements of lobular adenocarcinoma arranged as scattered single cells and a few areas demonstrating single file arrangements with minimal associated stromal reaction. 2 small ducts demonstrating atypical ductal hyperplasia are noted. One contains a small amount of necrosis and a small microcalcifications. Dr. Whaley has reviewed this case and concurs. CLINICAL HISTORY Previous cytology [id number] GROSS DESCRIPTION The specimen is received in formalin labeled, Right Breast Medial, and consists of a 0.9 x 0.6 x 0.1 cm aggregate of yellow irregular to cylindrical fibrofatty soft tissue fragments which is submitted entirely in one cassette. Signed (signature on file) Reynaldo Altamirano MD 1049 END OF REPORT * ML=Testing performed at Main Lab DEPARTMENT OF PATHOLOGY, [address] [place] [address] Reynaldo Altamirano M.D. Director [facility] # [id number] SEE RESULT BELOW Name: SHANTI HOLLINS : [address]: Renee Jolly MD Acct: [id number] Unit: [id number] AGE: 77 Location: LAB Re04/18/17 SEX: F Status: REG REF SPEC: [id number] JAZZY: 04/18/[address] [facility] [address]: Renee Jolly MD REQ: [id number] RECD: 04/18/17 STATUS: GABY LIZ DR: Reynaldo Mota MD _ ORDERED: FNA INTERP RPT, FNA BY PALP, CY ADEQ-ADDL P, LEVEL 4, CYTO ADEQ- 1ST P FINAL DIAGNOSIS Breast, right medial @ 4:30 o'clock, 3cm from areola, fine needle aspiration by palpation: --Atypical- cytologically atypical epithelial elements and few fragments of cellular debris. Suspicious for low-grade neoplasm. Comment: The aspirate smears are modestly cellular demonstrating scattered cohesive epithelial fragments with mild architectural disorder, mild nuclear pleomorphism and minimal nuclear contour irregularities. A few groups demonstrate associated myoepithelial elements while several clusters laxities elements. A few scattered intact epithelial elements with mild cytologic atypia are likewise seen. Few fragments of cellular debris suggestive of comedo type material are also identified. These findings are suspicious for a low-grade neoplastic process. Additional studies including excision with adequate margins should be considered. The procedure was explained to and understood by the patient. Signed consent was obtained and a time out procedure was performed at the bedside to verify patient identity and biopsy site. Fine needle aspiration biopsy was performed times 2 with a 25 gauge needle on vague, soft 1 cm nodular density deep in the right medial breast 4:30 o'clock position, 3 cm from areola. Adequacy was assessed by fast stain technique. CONTINUED ON NEXT PAGE * ML=Testing performed at Main Lab DEPARTMENT OF PATHOLOGY, [address] [place] [address] Reynaldo Altamirano M.D. Director [facility] # [id number] RUN DATE: 04/20/17 [facility] LAB LIVE PAGE 2 Patient: SHANTI HOLLINS [id number] (Continued) SPECIMEN COMMENTS (Continued) The procedure was tolerated well without complications. A cell block was prepared in the evaluation of this specimen. Smears and cell block reveal similar findings. BREAST RIGHT - RIGHT MEDIAL BREAST FINE NEEDLE ASPIRATION BY PALPATION CLINICAL HISTORY 1 cm deep right medial breast nodule at 4:30 o'clock, 3 cm from areola. IMMEDIATE INTERPRETATION Pass 1-inadequate, pass 2-adequate GROSS DESCRIPTION Fine needle aspiration by palpation x 2 passes with 4 Alcohol fixed slide(s) and needle rinse in formalin for cell block. Signed (signature on file) Reynaldo Altamirano MD 1446 END OF REPORT * ML=Testing performed at Main Lab DEPARTMENT OF PATHOLOGY, [address] [place] [address] Reynaldo Altamirano M.D. Director [facility] # [id number] 9 Because ethnic data is not always readily available, this report includes an eGFR for both -Americans and non- Americans. The National Kidney Disease Education Program (NKDEP) does not endorse the use of the MDRD equation for patients that are not between the ages of 18 and 70, are , have extremes of body size, muscle mass, or nutritional status, or are non- or non-. According to the National Kidney Foundation, irrespective of diagnosis, the stage of the disease is based on the level of kidney function: Stage Description GFR(mL/min/1.73 m(2)) 1 Kidney damage with normal or decreased GFR 90 2 Kidney damage with mild decrease in GFR 60-89 3 Moderate decrease in GFR 30-59 4 Severe decrease in GFR 15-29 5 Kidney failure <15 (or dialysis) 10 Because ethnic data is not always readily available, this report includes an eGFR for both -Americans and non- Americans. The National Kidney Disease Education Program (NKDEP) does not endorse the use of the MDRD equation for patients that are not between the ages of 18 and 70, are , have extremes of body size, muscle mass, or nutritional status, or are non- or non-. According to the National Kidney Foundation, irrespective of diagnosis, the stage of the disease is based on the level of kidney function: Stage Description GFR(mL/min/1.73 m(2)) 1 Kidney damage with normal or decreased GFR 90 2 Kidney damage with mild decrease in GFR 60-89 3 Moderate decrease in GFR 30-59 4 Severe decrease in GFR 15-29 5 Kidney failure <15 (or dialysis) 11 Test Performed by: [address] [address] [employer] Supervisor: Graham Hughes III, M.D. 12 Because ethnic data is not always readily available, this report includes an eGFR for both -Americans and non- Americans. The National Kidney Disease Education Program (NKDEP) does not endorse the use of the MDRD equation for patients that are not between the ages of 18 and 70, are , have extremes of body size, muscle mass, or nutritional status, or are non- or non-. According to the National Kidney Foundation, irrespective of diagnosis, the stage of the disease is based on the level of kidney function: Stage Description GFR(mL/min/1.73 m(2)) 1 Kidney damage with normal or decreased GFR 90 2 Kidney damage with mild decrease in GFR 60-89 3 Moderate decrease in GFR 30-59 4 Severe decrease in GFR 15-29 5 Kidney failure <15 (or dialysis) 13 -- REFERENCE VALUE -- <20.0 (Negative) Test Performed by: [address] [address] [employer] Supervisor: Graham Hughes III, M.D. 14 Desirable: Less than 200 MG/DL Borderline-High Risk: 200-239 MG/DL High-Risk: 240 MG/DL and over 15 HDL Interpretation: Undesirable: High Risk: Less than 40 MG/DL Desirable: Low Risk: Greater than 60 MG/DL Procedures Date CPT Code Description Status 06/23/2017 Mammogram Completed 06/23/2017 30628 Mastectomy Partial Completed 06/23/2017 92325 Mastectomy Partial Completed 06/23/2017 44797 Biopsy/Excision Deep Axillary Node(S) Completed 06/23/2017 24350 Mastectomy Simple Complete Completed 06/23/2017 93018 Mastectomy Simple Complete Completed 06/07/2017 51175 EKG Tracing & Interpretation Completed 06/01/2017 Mammogram Completed 05/10/2017 Mammogram Completed 04/26/2017 89585 Biopsy Breast Needle Core Completed 07/14/2016 29146 EKG Tracing & Interpretation Completed 06/22/2016 84584 Holter Monitor Review (24 hr)dr del rio & melanie Completed only 06/21/2016 67833 ECG Monitor/Recording W/Visual Superimposition Scanning Completed 05/17/2016 Mammogram Completed 04/13/2015 Mammogram Completed 01/19/2015 22001 Laparoscopy Cholecystectomy Completed 01/29/2014 Mammogram Completed 02/19/2013 57676 Stress Test Completed 02/19/2013 42444 Myocardial Perfusion Imaging Tomographic (Spect) Completed Multiple Studies 02/07/2013 81231 ECHO Transthoracic, Real-Time 2D With Doppler And Color Completed Flow 01/22/2013 01555 EKG Tracing & Interpretation Completed 01/22/2013 Bone Mineral Density Test Completed 01/22/2013 Mammogram Completed 04/25/2008 Mammogram Completed 04/23/2007 Mammogram Completed Encounters Type Date Location Provider CPT E/M Dx Office Visit 06/07/2017 [facility] Thierno Pryor, 61706 I49.1 4:00p DO [facility] Office Visit 05/23/2017 [facility] Huseyin Lopez, 14817 G31.84 11:45a Of [facility] [place] Office Visit 04/18/2017 [facility] Renee Abad Jolly, 12514 N63.14 1:45p MD Office Visit 01/23/2017 [facility] Huseyin Lopez, 24929 G31.84 9:15a [place] Office Visit 07/14/2016 [facility] Thierno Pryor, 96135 I49.1 1:00p DO [facility] E87.6 Office Visit 04/26/2016 10:00a [facility] Huseyin Mckenzie 11007 G31.84 [place] Office Visit 05/28/2013 1:00p [facility] Of Silverio Avelar 33194 715.94 Jhony Lobo 719.45 733.00 Office Visit 02/20/2013 2:30p [facility] Of Rainer Naik M.D., 07976 786.09 [facility] At [facility] 401.9 Office Visit 01/22/2013 2:15p [facility] Of Rainer Naik M.D., 95372 786.50 [facility], [facility] 786.09 401.9 272.4 Office Visit 01/02/2013 9:45a Orthopedic Services Janice 64099 715.94 Of Scott Tipton M.D. Office Visit 11/22/2012 1:00p Rheumatology Silverio Avelar M.D. 60528 715.94 Services Of [facility] Office Visit 11/07/2012 10:30a Orthopedic Services Janice 55975 715.94 Of Scott Tipton M.D. Office Visit 10/09/2012 11:00a Rheumatology Silverio Avelar M.D. 39562 715.94 Services Of [facility] Office Visit 05/03/2012 10:00a [facility] Internal Jennie Frias M.D. 89808 244.9 Medicine - [place] 840.9 401.9 272.9 Office Visit 04/10/2012 3:10p [facility] Internal Medicine Amaris Gerber, 59404 719.45 - Selvin Lobo 840.4 Office Visit 02/02/2012 2:00p [facility] Internal Medicine Jennie Frias M.D. 90236 244.9 - [place] 272.9 401.9 733.00 Plan of Care Future Appointment(s):08/16/2017 11:15 am - Renee Jolly MD at [facility]08/11/2017 - Rosalia Banks, NPC50.311 Malig neoplm of lower-inner quadrant of right female breastFollow up:08/16 CLF S/P R [id number] Postproc seroma of skin, subcu following other procedureComments:NO DRAINAGE OF SEROMA TODAY
--- OUTSIDE RECORDS SUMMARY | 2017-09-04 03:45 | XMS REPORT ---
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[facility] ETOH Use Denies alcohol use Smoking Patient [...] [employer] TC Administered Injection Brock Gold M.D., [facility], Per Unit Dose FSCAI Up To 40 [...] Pathology SEE RESULT BELOW 6, 7 Cytology Non-Trimming Machine Operator <pending> 6 Laboratory test finding 04/18/2017 Cytology Non-Trimming Machine Operator SEE RESULT BELOW 8 Surgical Pathology <pending> [...] 5 Kidney failure <15 (or dialysis) 2 [id number] 3 SEE RESULT BELOW Name: SHANTI HOLLINS : [address]: Renee Jolly MD Acct: [id number] Unit: [id number] AGE: 77 Location: [facility] Re06/01/17 SEX: F Status: REG REF SPEC: [id number] JAZZY: 06/01/[address] [facility] [address]: Kvng Simon MD REQ: [id number] RECD: 06/01/17 STATUS: GABY LIZ DR: Renee Jolly MD _ ORDERED: LEVEL 4, IMMUNO-QUANT/3 COMMENTS: [id number] Addendum: The following immunochemical stains are performed with appropriate controls . ER positive, 3+ greater than 90% MO positive, 2?3 plus, 70% HER-2 negative (0+) [...] grade: 3. Estimated mitotic count: 2. Combined Coffey histologic grade: 3/3. (8/9 points). Lymphovascular invasion: Not identified. Ductal Carcinoma in situ (DCIS): Not identified. ER, MO, and Her2/Brice by immunohistochemistry with appropriate controls: ER: Pending; results will be reported in an addendum. MO: Pending; results will be reported in an addendum. Her2/Brice: Pending; results will be reported in an addendum. Microcalcifications: Not identified. Other findings: None. Predicted pTNM histopathologic stage: at least pT1b. COMMENT: Dr. Altamirano reviewed this case in intradepartmental CONTINUED ON NEXT PAGE * ML=Testing performed at Main Lab DEPARTMENT OF PATHOLOGY, [address] [place] [address] Reynaldo Altamirano M.D. Director [facility] # [id number] RUN DATE: 06/05/17 [facility] LAB LIVE PAGE 2 Patient: SHANTI HOLLINS [id number] (Continued) SPECIMEN COMMENTS (Continued) consultation and agrees [...] performed at Main Lab DEPARTMENT OF PATHOLOGY, [address] [place] [address] Reynaldo Altamirano M.D. Director [facility] # [id number] 4 Because ethnic data is not always [...] smear. Reviewed by Monica Whaley MD 6 [id number] SEE RESULT BELOW Name: SHANTI HOLLINS : [address]: Renee Jolly MD Acct: [id number] Unit: [id number] AGE: 77 Location: [facility] Re04/26/17 SEX: F Status: REG REF SPEC: [id number] JAZZY: 04/26/17-[address]: Renee Jolly MD REQ: [id number] RECD: 04/26/17 STATUS: SOUT _ ORDERED: LEVEL 4, IMMUNO-FIRST, IMMUNO-ADDL, IMMUNO-QUANT/3 COMMENTS: [id number] Addendum: The following immunochemical stains are performed with appropriate controls. ER positive, 3+, 90% of tumor cells MO positive, 1-2 plus, 10% of tumor cells [...] occupying 10% of total core volume. Estimated Coffey grade: Estimated tubule formation: 3 Estimated nuclear grade: 1. Estimated mitotic count: 1. Combined Coffey histologic grade: 1/3. (5/9 points). Lymphovascular invasion: Not seen. Ductal Carcinoma in situ (DCIS): Not seen. ER, MO, and Her2/Brice by immunohistochemistry with appropriate controls: ER: Pending; results will be reported in an addendum. MO: Pending; results will be reported in an addendum. Her2/Brice: Pending; results will be reported in an addendum. Microcalcifications: Present, in association with single focus of atypical ductal hyperplasia. CONTINUED ON NEXT PAGE * ML=Testing performed at Main Lab DEPARTMENT OF PATHOLOGY, [address] [place] [address] Reynaldo Altamirano M.D. Director [facility] # [id number] RUN DATE: 05/01/17 [facility] LAB LIVE PAGE 2 Patient: SHANTI HOLLINS [id number] (Continued) FINAL DIAGNOSIS (Continued) Other findings: Two [...] case and concurs. CLINICAL HISTORY Previous cytology [id number] GROSS DESCRIPTION The specimen is received in formalin labeled, Right Breast Medial, and consists of a 0.9 x 0.6 x 0.1 cm aggregate of yellow irregular to cylindrical fibrofatty soft tissue fragments which is submitted entirely in one cassette. Signed (signature on file) Reynaldo Altamirano MD [id number] END OF REPORT * ML=Testing performed at Main Lab DEPARTMENT OF PATHOLOGY, [address] [place] [address] Reynaldo Altamirano M.D. Director [facility] # [id number] 8 SEE RESULT BELOW Name: SHANTI HOLLINS : [address]: Renee Jolly MD Acct: [id number] Unit: [id number] AGE: 77 Location: LAB Re04/18/17 SEX: F Status: REG REF SPEC: [id number] JAZZY: 04/18/[address] [facility] [address]: Renee Jolly MD REQ: [id number] RECD: 04/18/17 STATUS: GABY LIZ DR: Reynaldo [...] performed at Main Lab DEPARTMENT OF PATHOLOGY, [address] [place] [address] Reynaldo Altamirano M.D. Director [facility] # [id number] RUN DATE: 04/20/17 [facility] LAB LIVE PAGE 2 Patient: SHANTI HOLLINS [id number] (Continued) SPECIMEN COMMENTS (Continued) The procedure was [...] performed at Main Lab DEPARTMENT OF PATHOLOGY, [address] [place] [address] Reynaldo Altamirano M.D. Director [facility] # [id number] 9 Because ethnic data is not always [...] <15 (or dialysis) 11 Test Performed by: [address] [address] [employer] Order Clerk: Graham Hughes III, M.D. 12 Because ethnic [...] VALUE -- <20.0 (Negative) Test Performed by: [address] [address] [employer] Order Clerk: Graham Hughes III, M.D. 14 Desirable: Less than 200 MG/DL Borderline-High Risk: 200-239 MG/DL High-Risk: 240 MG/DL and over 15 HDL Interpretation: Undesirable: High Risk: Less than 40 MG/DL Desirable: Low Risk: Greater than 60 MG/DL Procedures Date CPT Code Description Status 06/23/2017 Mammogram Completed 06/23/2017 00614 Mastectomy Partial Completed 06/23/2017 43828 Mastectomy Partial Completed 06/23/2017 41527 Biopsy/Excision Deep Axillary Node(S) Completed 06/23/2017 88540 Mastectomy Simple Complete Completed 06/23/2017 29564 Mastectomy Simple Complete Completed 06/07/2017 28563 EKG Tracing & Interpretation Completed 06/01/2017 Mammogram Completed 05/10/2017 Mammogram Completed 04/26/2017 22842 Biopsy Breast Needle Core Completed 07/14/2016 43095 EKG Tracing & Interpretation Completed 06/22/2016 90536 Holter Monitor Review (24 hr)dr del rio & melanie Completed only 06/21/2016 89858 ECG Monitor/Recording W/Visual Superimposition Scanning Completed 05/17/2016 Mammogram Completed 04/13/2015 Mammogram Completed 01/19/2015 05168 Laparoscopy Cholecystectomy Completed 01/29/2014 Mammogram Completed 02/19/2013 77400 Stress Test Completed 02/19/2013 98951 Myocardial Perfusion Imaging Tomographic (Spect) Completed Multiple Studies 02/07/2013 45388 ECHO Transthoracic, Real-Time 2D With Doppler And Color Completed Flow 01/22/2013 49858 EKG Tracing & Interpretation Completed 01/22/2013 Bone Mineral Density Test Completed 01/22/2013 Mammogram Completed 04/25/2008 Mammogram Completed 04/23/2007 Mammogram Completed Encounters Type Date Location Provider CPT E/M Dx Office Visit 06/07/2017 [facility] Thierno Pryor, 54341 I49.1 4:00p DO [facility] Office Visit 05/23/2017 [facility] Huseyin Lopez, 92414 G31.84 11:45a Of [facility] [place] Office Visit 04/18/2017 [facility] Renee Abad Jolly, 38789 N63.14 1:45p MD Office Visit 01/23/2017 [facility] Huseyin Lopez, 34602 G31.84 9:15a [place] Office Visit 07/14/2016 [facility] Thierno Pryor, 03402 I49.1 1:00p DO [facility] E87.6 Office Visit 04/26/2016 10:00a [facility] Huseyin Mckenzie 75265 G31.84 [place] Office Visit 05/28/2013 1:00p Rheumatology Services Of [place]io Avelar 96976 715.94 Jhony Lobo 719.45 733.00 Office Visit 02/20/2013 2:30p [facility] Of Rainer Naik M.D., 35354 786.09 [facility] 401.9 Office Visit 01/22/2013 2:15p [facility] Of Rainer Naik M.D., 65721 786.50 [facility] 786.09 401.9 272.4 Office Visit 01/02/2013 9:45a Orthopedic Services Janice 16774 715.94 Of Scott Tipton M.D. Office Visit 11/22/2012 1:00p Rheumatology Silverio Avelar M.D. 67260 715.94 Services Of [facility] Office Visit 11/07/2012 10:30a [facility] Services Janice 20831 715.94 Of Scott Tipton M.D. Office Visit 10/09/2012 11:00a Rheumatology Silverio Avelar M.D. 71719 715.94 Services Of [facility] Office Visit 05/03/2012 10:00a [facility] Internal Jennie Frias M.D. 74814 244.9 Medicine - [place] 840.9 401.9 272.9 Office Visit 04/10/2012 3:10p [facility] Internal Medicine Amaris Gerber, 28789 719.45 - Selvin Lobo 840.4 Office Visit 02/02/2012 2:00p [facility] Internal Medicine Jennie Frias M.D. 94703 244.9 - [place] 272.9 401.9 733.00 Plan of Care Future Appointment(s):08/16/2017 11:15 am - Renee Jolly MD at [facility]08/11/2017 - Rosalia Banks, NPC50.311 Malig neoplm of lower-inner quadrant of right female breastFollow up:08/16 [facility] S/P R [id number] Postproc seroma of skin, subcu following other procedureComments:NO DRAINAGE OF SEROMA TODAY
[2017-09-04] MEDS ORDERED: NS 0.9% 1000 ML* 1,000 ML IV ONE (03:46)
--- OUTSIDE RECORDS SUMMARY | 2017-09-04 03:46 | XMS REPORT ---
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 Use Denies alcohol use Smoking [...] Technetium TC Administered Injection Brock Gold M.D., [facility], Per Unit Dose FSCAI Up To 40 Millicuries Vital Signs Date Vital Result Comment 08/08/2017 Heart Rate 106 /min Respiratory Rate [...] Pathology SEE RESULT BELOW 6, 7 Cytology Non-Motion Graphics Artist <pending> 6 Laboratory test finding 04/18/2017 Cytology Non-Motion Graphics Artist SEE RESULT BELOW 8 Surgical Pathology <pending> [...] 5 Kidney failure <15 (or dialysis) 2 [id number] SEE RESULT BELOW Name: SHANTI HOLLINS : [address]: Renee Jolly MD Acct: [id number] Unit: [id number] AGE: 77 Location: [facility] Re06/01/17 SEX: F Status: REG REF SPEC: [id number] JAZZY: 06/01/17-[address] [facility] [address]: Kvng Simon MD REQ: [id number] RECD: 06/01/17 STATUS: GABY LIZ DR: Renee Jolly MD _ ORDERED: LEVEL 4, IMMUNO-QUANT/3 COMMENTS: [id number] Addendum: The following immunochemical stains are performed with appropriate controls . ER positive, 3+ greater than 90% NJ positive, 2?3 plus, 70% HER-2 negative (0+) [...] grade: 3. Estimated mitotic count: 2. Combined Consuelo histologic grade: 3/3. (8/9 points). Lymphovascular invasion: Not identified. Ductal Carcinoma in situ (DCIS): Not identified. ER, NJ, and Her2/Brice by immunohistochemistry with appropriate controls: ER: Pending; results will be reported in an addendum. NJ: Pending; results will be reported in an addendum. Her2/Brice: Pending; results will be reported in an addendum. Microcalcifications: Not identified. Other findings: None. Predicted pTNM histopathologic stage: at least pT1b. COMMENT: Dr. Altamirano reviewed this case in intradepartmental CONTINUED ON NEXT PAGE * ML=Testing performed at Main Lab DEPARTMENT OF PATHOLOGY, [address] [place] [address] Reynaldo Altamirano M.D. Director [facility] # [id number] RUN DATE: 06/05/17 [facility] LAB LIVE PAGE 2 Patient: SHANTI HOLLINS [id number] (Continued) SPECIMEN COMMENTS (Continued) consultation and agrees [...] performed at Main Lab DEPARTMENT OF PATHOLOGY, [address] [place] [address] Reynaldo Altamirano M.D. Director [facility] # [id number] 4 Because ethnic data is not always [...] smear. Reviewed by Monica Whaley MD 6 [id number] 7 SEE RESULT BELOW Name: SHANTI HOLLINS : [address]: Renee Jolly MD Acct: [id number] Unit: [id number] AGE: 77 Location: [facility] Re04/26/17 SEX: F Status: REG REF SPEC: [id number] JAZZY: 04/26/17-[address]: Renee Jolly MD REQ: [id number] RECD: 04/26/17 STATUS: SOUT _ ORDERED: LEVEL 4, IMMUNO-FIRST, IMMUNO-ADDL, IMMUNO-QUANT/3 COMMENTS: [id number] Addendum: The following immunochemical stains are performed with appropriate controls. ER positive, 3+, 90% of tumor cells NJ positive, 1-2 plus, 10% of tumor cells [...] occupying 10% of total core volume. Estimated Wells grade: Estimated tubule formation: 3 Estimated nuclear grade: 1. Estimated mitotic count: 1. Combined Wells histologic grade: 1/3. (5/9 points). Lymphovascular invasion: Not seen. Ductal Carcinoma in situ (DCIS): Not seen. ER, NJ, and Her2/Brice by immunohistochemistry with appropriate controls: ER: Pending; results will be reported in an addendum. NJ: Pending; results will be reported in an addendum. Her2/Brice: Pending; results will be reported in an addendum. Microcalcifications: Present, in association with single focus of atypical ductal hyperplasia. CONTINUED ON NEXT PAGE * ML=Testing performed at Main Lab DEPARTMENT OF PATHOLOGY, [address] [place] [address] Reynaldo Altamirano M.D. Director [facility] # [id number] RUN DATE: 05/01/17 [facility] LAB LIVE PAGE 2 Patient: SHANTI HOLLINS [id number] (Continued) FINAL DIAGNOSIS (Continued) Other findings: Two [...] case and concurs. CLINICAL HISTORY Previous cytology [id number] GROSS DESCRIPTION The specimen is received in formalin labeled, Right Breast Medial, and consists of a 0.9 x 0.6 x 0.1 cm aggregate of yellow irregular to cylindrical fibrofatty soft tissue fragments which is submitted entirely in one cassette. Signed (signature on file) Reynaldo Altamirano MD [id number] END OF REPORT * ML=Testing performed at Main Lab DEPARTMENT OF PATHOLOGY, [address] [place] [address] Reynaldo Altamirano M.D. Director [facility] # [id number] SEE RESULT BELOW Name: SHANTI HOLLINS : [address]: Renee Jolly MD Acct: [id number] Unit: [id number] AGE: 77 Location: LAB Re04/18/17 SEX: F Status: REG REF SPEC: [id number] JAZZY: 04/18/[address] [facility] [address]: Renee Jolly MD REQ: [id number] RECD: 04/18/17 STATUS: GABY LIZ DR: Reynaldo [...] performed at Main Lab DEPARTMENT OF PATHOLOGY, [address] [place] [address] Reynaldo Altamirano M.D. Director [facility] # [id number] RUN DATE: 04/20/17 [facility] LAB LIVE PAGE 2 Patient: SHANTI HOLLINS [id number] (Continued) SPECIMEN COMMENTS (Continued) The procedure was [...] performed at Main Lab DEPARTMENT OF PATHOLOGY, [address] [place] [address] Reynaldo Altamirano M.D. Director [facility] # [id number] 9 Because ethnic data is not always [...] <15 (or dialysis) 11 Test Performed by: [address] [address] Mixer Operator: Graham Hughes III, M.D. 12 Because ethnic [...] VALUE -- <20.0 (Negative) Test Performed by: [place] [address] Mixer Operator: Graham Hughes III, M.D. 14 Desirable: Less than 200 MG/DL Borderline-High Risk: 200-239 MG/DL High-Risk: 240 MG/DL and over 15 HDL Interpretation: Undesirable: High Risk: Less than 40 MG/DL Desirable: Low Risk: Greater than 60 MG/DL Procedures Date CPT Code Description Status 06/23/2017 Mammogram Completed 06/23/2017 74720 Mastectomy Partial Completed 06/23/2017 45713 Mastectomy Partial Completed 06/23/2017 49717 Biopsy/Excision Deep Axillary Node(S) Completed 06/23/2017 28985 Mastectomy Simple Complete Completed 06/23/2017 82888 Mastectomy Simple Complete Completed 06/07/2017 87151 EKG Tracing & Interpretation Completed 06/01/2017 Mammogram Completed 05/10/2017 Mammogram Completed 04/26/2017 81647 Biopsy Breast Needle Core Completed 07/14/2016 02708 EKG Tracing & Interpretation Completed 06/22/2016 52619 Holter Monitor Review (24 hr)dr del rio & melanie Completed only 06/21/2016 66690 ECG Monitor/Recording W/Visual Superimposition Scanning Completed 05/17/2016 Mammogram Completed 04/13/2015 Mammogram Completed 01/19/2015 62095 Laparoscopy Cholecystectomy Completed 01/29/2014 Mammogram Completed 02/19/2013 24553 Stress Test Completed 02/19/2013 39349 Myocardial Perfusion Imaging Tomographic (Spect) Completed Multiple Studies 02/07/2013 85912 ECHO Transthoracic, Real-Time 2D With Doppler And Color Completed Flow 01/22/2013 59399 EKG Tracing & Interpretation Completed 01/22/2013 Bone Mineral Density Test Completed 01/22/2013 Mammogram Completed 04/25/2008 Mammogram Completed 04/23/2007 Mammogram Completed Encounters Type Date Location Provider CPT E/M Dx Office Visit 06/07/2017 [facility] Thierno StantonGlory Pryor, 54284 I49.1 4:00p DO [facility] Office Visit 05/23/2017 [facility] Huseyin Lopez, 54225 G31.84 11:45a Of Jhony Lobo Office Visit 04/18/2017 [facility] Renee Jolly, 74258 N63.14 1:45p MD Office Visit 01/23/2017 [facility] Huseyin Lopez, 72629 G31.84 9:15a [place] Office Visit 07/14/2016 [facility] Thierno SGlory Pryor, 43160 I49.1 1:00p DO [facility] E87.6 Office Visit 04/26/2016 10:00a [facility] Huseyin Mckenzie 10503 G31.84 [place] Lopez Office Visit 05/28/2013 1:00p [facility] Of Silverio Avelar 53417 715.94 Jhony Lobo 719.45 733.00 Office Visit 02/20/2013 2:30p [facility] Rainer Naik M.D., 43414 786.09 [facility], FSCAI 401.9 Office Visit 01/22/2013 2:15p [facility] R[facility] Naik M.D., 77230 786.50 [facility], FSCAI 786.09 401.9 272.4 Office Visit 01/02/2013 9:45a [facility] Janice 93091 715.94 Of Scott Tipton M.D. Office Visit 11/22/2012 1:00p Rheumatology Silverio Avelar M.D. 16420 715.94 [facility] Office Visit 11/07/2012 10:30a [facility] Janice 12114 715.94 Of Scott Tipton M.D. Office Visit 10/09/2012 11:00a Rheumatology Silverio Avelar M.D. 52086 715.94 [facility] Office Visit 05/03/2012 10:00a [facility] Internal Jennie Frias M.D. 68540 244.9 [facility] 840.9 401.9 272.9 Office Visit 04/10/2012 3:10p [facility] Internal Medicine Amaris Kochan, 16394 719.45 - Selvin Lobo 840.4 Office Visit 02/02/2012 2:00p [facility] Internal Medicine Jennie Frias M.D. 61090 244.9 [facility] [place] 272.9 401.9 733.00 Plan of Care Future Appointment(s):08/11/2017 9:30 am - Rosalia Banks NP at [facility]
[2017-09-04 04:23] LABS: Hematocrit 22 % (35-47); Hemoglobin 7.5 g/dl (12.0-16.0); Mean Corpuscular HGB Conc 34 g/dl (31-36); Mean Corpuscular Hemoglobin 30 pg (27-31); Mean Corpuscular Volume 89 fL (80-97); Mean Platelet Volume 7 um3 (7.4-10.4); Platelet Count 170 10^3/ul (150-450); Red Blood Count 2.48 10^6/ul (4.0-5.4); Red Cell Distribution Width 15 % (10.5-15); White Blood Count 0.3 10^3/ul (3.5-10.8)
[2017-09-04 04:36] LABS: EGFR Non-African American 79.8 (>60)
[2017-09-04 04:41] LABS: INR 1.09 (0.77-1.02)
[2017-09-04 04:55] LABS: ABS Neutrophils 0.2 10^3/ul (1.5-7.7)
[2017-09-04] MEDS ORDERED: Piperacillin/Tazobac ADVAN(*) 3.375 GM in NS 0.9% 100 ML* 100 ML IVPB ONE (04:56)
[2017-09-04] MEDS ORDERED: Vancomycin(*) 1,000 MG in NS 0.9% 250 ML* 250 ML IVPB ONE (04:57)
[2017-09-04] MEDS ORDERED: Zosyn per Pharmacy* NOTE FOLLOW UP SCH (05:00)
--- NOTE | 2017-09-04 05:15 | ED ---
Nic Lance Gabriel, scribed for Shaq Bolivar MD on 09/04/17 at 0357 . Complex/Multi-Sys Presentation - HPI Summary HPI Summary: This patient is a 77 year old F BIBA to [facility] with a chief complaint of general weakness. Patient denies vomiting, diarrhea, and fever. Pt has breast cancer and had a right mastectomy and a left lumpectomy. She is currently on chemo and just had her second round. - History Of Current Complaint Time Seen by Provider: 09/04/17 03:29 Hx Obtained From: Patient Onset/Duration: Still Present Timing: Constant Severity Currently: Mild Severity Initially: Mild Associated Signs And Symptoms: Positive: Weakness. Negative: Vomiting, Diarrhea , Fever - Allergies/Home Medications Allergies/Adverse Reactions: Allergies Allergy/AdvReac Type Severity Reaction Status Date / Time Gadolinium-Containing Allergy Rash Verified 08/08/17 09:46 Contrast Medi iodixanol Allergy Hives Verified 08/08/17 09:47 PMH/Surg Hx/FS Hx/Imm Hx Endocrine/Hematology History: Reports: Hx Thyroid Disease - ON DAILY MEDS, Hx Anemia - A TEEN Denies: Hx Diabetes, Hx Systemic Lupus Erythematosus Cardiovascular History: Reports: Hx Angina - FAMILY HISTORY, Hx Hypertension - ON DAILY MEDS, Other Cardiovascular Problems/Disorders - HIGH CHOLESTEROL Denies: Hx Congestive Heart Failure, Hx Pacemaker/ICD Respiratory History: Reports: Hx Asthma - CURRENTLY EVALUATING, NOT USES INHALERS CURRENTLY, Hx Chronic Obstructive Pulmonary Disease (COPD), Other Respiratory Problems/Disorders - COPD GI History: Reports: Hx Gastroesophageal Reflux Disease - ON DAILY MEDS, Other GI Disorders - GERD History: Denies: Hx Dialysis, Hx Renal Disease, Other Problems/Disorders Musculoskeletal History: Reports: Hx Arthritis - OSTEO, Hx Bursitis, Hx Osteoporosis, Other Musculoskeletal History - OSTEOPOROSIS, OK NOW Denies: Hx Rheumatoid Arthritis Sensory History: Reports: Hx Cataracts - BILATERAL, Hx Contacts or Glasses - GLASSES Denies: Hx Hearing Aid Opthamlomology History: Reports: Hx Cataracts - BILATERAL, Hx Contacts or Glasses - GLASSES Neurological History: Reports: Other Neuro Impairments/Disorders - POSITIONAL VERTIGO X2 Psychiatric History: Reports: Hx Anxiety - AT TIMES, Hx Depression - AT TIMES. NO MEDS Denies: Hx Panic Disorder - Cancer History Cancer Type, Location and Year: SKIN (MELANOMA) CALF Hx Chemotherapy: No Hx Radiation Therapy: No - Surgical History Surgery Procedure, Year, and Place: 1975 TUBAL LIGATION,. 1977 RIGHT BREAST ASPIRATION,. 1982 HYSTERECTOMY & OVARY. 1985 LT THUMB REATTACHMENT,. 2006 RT CALF MOLE REMOVED (CALF SURGERIES FOR MELANOMA),. 2006 RT INNER CALF BX (CALF PROCEDURES FOR MELANOMA),. 2008 BILATERAL IRIDOTOMY (EYE GLAUCOMA FLUID RELIEF) , [facility]. 2013 BILATERAL CATARACTS [facility] [place] 2014 GALLBLADDER. 2017 RIGHT BREAST FINE NEEDLE AND ASPIRATIONS X3 (IN OFFICE PROCEDURES) Hx Anesthesia Reactions: No Infectious Disease History: No Infectious Disease History: Reports: Hx Shingles Denies: History Other Infectious Disease, Traveled Outside the [place] in Last 30 Days - Family History Known Family History: Positive: Cardiac Disease - Social History Alcohol Use: None Substance Use Type: Reports: None Smoking Status (MU): Former Smoker Type: Cigarettes Amount Used/How Often: 1 PPD/30YRS Have You Smoked in the Last Year: No Review of Systems Negative: Fever Negative: Vomiting, Nausea Positive: Weakness All Other Systems Reviewed And Are Negative: Yes Physical Exam - Summary Physical Exam Summary: VITAL SIGNS: Reviewed. GENERAL: Patient is an elderly FEMALE who is lying comfortable in the stretcher. Patient is not in any acute respiratory distress.Pt is pale HEAD AND FACE: No signs of trauma. No ecchymosis, hematomas or skull depressions. No sinus tenderness. EYES: PERRLA, EOMI x 2, No injected conjunctiva, no nystagmus. EARS: Hearing grossly intact. Ear canals and tympanic membranes are within normal limits. MOUTH: Oropharynx within normal limits. NECK: Supple, trachea is midline, no adenopathy, no JVD, no carotid bruit, no c- spine tenderness, neck with full ROM. CHEST: right mastectomy, no tenderness at palpation LUNGS: Decreased breath sounds bilaterally CVS: tachycardic, S1 and S2 present, no murmurs or gallops appreciated. ABDOMEN: Soft, non-tender. No signs of distention. No rebound no guarding, and no masses palpated. Bowel sounds are normal. EXTREMITIES: FROM in all major joints, no edema, no cyanosis or clubbing. NEURO: Alert and oriented x 3. No acute neurological deficits. Speech is normal and follows commands. SKIN: Dry and warm Triage Information Reviewed: Yes Vital Signs On Initial Exam: Initial Vitals Temp Pulse Resp BP Pulse Ox 100 F 120 18 116/59 100 09/04/17 03:40 09/04/17 03:40 09/04/17 03:40 09/04/17 03:40 09/04/17 03:40 Vital Signs Reviewed: Yes Diagnostics - Vital Signs Vital Signs Temp Pulse Resp BP Pulse Ox 09/04/17 03:40 100 F 120 18 116/59 100 - Laboratory Lab Results: Lab Results 09/04/17 09/04/17 09/04/17 Range/Units 04:13 04:13 04:13 WBC 0.3 L (3.5-10.8) 10^3/ul RBC 2.48 L (4.0-5.4) 10^6/ul Hgb 7.5 L (12.0-16.0) g/dl Hct 22 L (35-47) % MCV 89 (80-97) fL MCH 30 (27-31) pg MCHC 34 (31-36) g/dl RDW 15 (10.5-15) % Plt Count 170 (150-450) 10^3/ul MPV 7 L (7.4-10.4) um3 Neut % (Auto) Not Reportable Lymph % (Auto) Not Reportable [place] % (Auto) Not Reportable Eos % (Auto) Not Reportable Baso % (Auto) Not Reportable Absolute Neuts (auto) 0.2 L* (1.5-7.7) 10^3/ul Absolute Lymphs (auto) Not Reportable Absolute Monos (auto) Not Reportable Absolute Eos (auto) Not Reportable Absolute Basos (auto) Not Reportable Absolute Nucleated RBC Not Reportable Neutrophils % Pending Nucleated RBC % Not Reportable Normal RBC Morphology Pending INR (Anticoag Therapy) (0.77-1.02) APTT (26.0-36.3) seconds Sodium 128 L (133-145) mmol/L Potassium 4.0 (3.5-5.0) mmol/L Chloride 97 L (101-111) mmol/L Carbon Dioxide 27 (22-32) mmol/L Anion Gap 4 (2-11) mmol/L BUN 8 (6-24) mg/dL Creatinine 0.71 (0.51-0.95) mg/dL Est GFR ( Amer) 102.7 (>60) Est GFR (Non-Af Amer) 79.8 (>60) BUN/Creatinine Ratio 11.3 (8-20) Glucose 115 H (70-100) mg/dL Lactic Acid 0.8 (0.5-2.0) mmol/L Calcium 8.1 L (8.6-10.3) mg/dL Magnesium 2.0 (1.9-2.7) mg/dL Total Bilirubin 1.20 H (0.2-1.0) mg/dL AST 13 (13-39) U/L ALT 11 (7-52) U/L Alkaline Phosphatase 54 (34-104) U/L C-Reactive Protein 124.82 H (< 5.00) mg/L Total Protein 5.5 L (6.4-8.9) g/dL Albumin 2.5 L (3.2-5.2) g/dL Globulin 3.0 (2-4) g/dL Albumin/Globulin Ratio 0.8 L (1-3) Amylase 27 L (29-103) U/L Lipase < 10 L (11.0-82.0) U/L TSH Pending Blood Type Antibody Screen Crossmatch 09/04/17 09/04/17 Range/Units 04:13 04:43 WBC (3.5-10.8) 10^3/ul RBC (4.0-5.4) 10^6/ul Hgb (12.0-16.0) g/dl Hct (35-47) % MCV (80-97) fL MCH (27-31) pg MCHC (31-36) g/dl RDW (10.5-15) % Plt Count (150-450) 10^3/ul MPV (7.4-10.4) um3 Neut % (Auto) Lymph % (Auto) [place] % (Auto) Eos % (Auto) Baso % (Auto) Absolute Neuts (auto) (1.5-7.7) 10^3/ul Absolute Lymphs (auto) Absolute Monos (auto) Absolute Eos (auto) Absolute Basos (auto) Absolute Nucleated RBC Neutrophils % Nucleated RBC % Normal RBC Morphology INR (Anticoag Therapy) 1.09 H (0.77-1.02) APTT 30.6 (26.0-36.3) seconds Sodium (133-145) mmol/L Potassium (3.5-5.0) mmol/L Chloride (101-111) mmol/L Carbon Dioxide (22-32) mmol/L Anion Gap (2-11) mmol/L BUN (6-24) mg/dL Creatinine (0.51-0.95) mg/dL Est GFR ( Amer) (>60) Est GFR (Non-Af Amer) (>60) BUN/Creatinine Ratio (8-20) Glucose (70-100) mg/dL Lactic Acid (0.5-2.0) mmol/L Calcium (8.6-10.3) mg/dL Magnesium (1.9-2.7) mg/dL Total Bilirubin (0.2-1.0) mg/dL AST (13-39) U/L ALT (7-52) U/L Alkaline Phosphatase (34-104) U/L C-Reactive Protein (< 5.00) mg/L Total Protein (6.4-8.9) g/dL Albumin (3.2-5.2) g/dL Globulin (2-4) g/dL Albumin/Globulin Ratio (1-3) Amylase (29-103) U/L Lipase (11.0-82.0) U/L TSH Blood Type O Positive Antibody Screen Pending Crossmatch See Detail Result Diagrams: 09/04/17 04:13 09/04/17 04:13 Lab Statement: Any lab studies that have been ordered have been reviewed, and results considered in the medical decision making process. - Radiology CXR Radiology Interpretation Completed By: ED Physician - no acute infiltrate - EKG 03:59 Cardiac Rate: Tachycardia EKG Rhythm: Sinus Rhythm - at 121 BPM EKG Interpretation: Normal axis. Normal interval. No ischemic changes Complex Multi-Symp Course/Dx Assessment/Plan: This patient is a 77 year old F BIBA to [facility] with a chief complaint of general weakness. Patient denies vomiting, diarrhea, and fever. Pt has breast cancer and had a right mastectomy and a left lumpectomy. She is currently on chemo and just had her second round. An EKG reveals sinus 121 Normal axis. Normal interval. No ischemic changes. CXR reveals, no acute infiltrate. Test results with no significant abnormalities except for absolute neuts of .2. Dx neutrophil fever and symptomatic anemia. We discussed patient care with Dr. Yanez and they accepted the patient for admittance. Patient will be admitted. The patient is agreeable with this plan. - Diagnoses Provider Diagnoses: Symptomatic anemia, neutrophilic fever Discharge - Discharge Plan Condition: Fair Disposition: ADMITTED TO [facility] Referrals: Martha Mota MD [Primary Care Provider] - The documentation as recorded by the Nic bauer Gabriel accurately reflects the service I personally performed and the decisions made by me, Shaq Bolivar MD.
[2017-09-04 05:20] LABS: Monocytes % 12 % (0-7)
[2017-09-04 05:22] LABS: ABS Basophils 0 10^3/ul (0-0.2); ABS Eosinophils 0 10^3/ul (0-0.6); ABS Lymphocytes 0.1 10^3/ul (1.0-4.8); ABS Monocytes 0 10^3/ul (0-0.8); ABS Nucleated RBC 0 10^3/ul; Eosinophil % 0 % (0-6); Lymphocyte % 31.7 % (25-47); Nucleated Red Blood Cells % 0
[2017-09-04] MEDS ORDERED: Ondansetron INJ* 2 MG/ML VIAL IV PRN (05:45)
[2017-09-04] MEDS ORDERED: ORPHENADRINE 100 MG PO PRN (05:52)
[2017-09-04] MEDS ORDERED: Loperamide CAP* 2 MG PO PRN (05:54)
[2017-09-04] MEDS ORDERED: Cefepime 2 GM in Dextrose(*) 2 GM/50 ML BAG IV SCH (07:00)
[2017-09-04] MEDS: NS 0.9% 1000 ML* 1,000 ML IV SCH ×2 (07:08→17:32)
--- NOTE | 2017-09-04 07:49 | RAD ---
HISTORY: Weakness COMPARISONS: May 04, 2007 VIEWS: 1: frontal portable view of the chest at 4:08 AM FINDINGS: LINES AND TUBES: None. CARDIOMEDIASTINAL SILHOUETTE: The cardiomediastinal silhouette is normal for portable technique. PLEURA: The costophrenic angles are sharp. No pleural abnormalities are noted. LUNG PARENCHYMA: The lungs are clear. ABDOMEN: The upper abdomen is clear. There is no subphrenic gas. BONES AND SOFT TISSUES: No bone or soft tissue abnormalities are noted. Surgical clips are noted in the left axilla. IMPRESSION: NO ACTIVE CARDIOPULMONARY DISEASE.
[2017-09-04] MEDS ORDERED: Nabumetone TAB* 500 MG PO SCH (09:00)
[2017-09-04 09:30] LABS: Urine Appearance Cloudy; Urine Blood 1+ (Negative); Urine Color Yellow; Urine Ketones Negative (Negative); Urine Protein Negative (Negative); Urine Specific Gravity 1.014 (1.010-1.030); Urine Urobilinogen Positive (Negative)
[2017-09-04] MEDS: Omeprazole CAP* 20 MG PO SCH (10:05)
[2017-09-04] MEDS: Levothyroxine TAB* 100 MCG TAB PO SCH (10:05)
[2017-09-04] MEDS: Enoxaparin(*) 40 MG/0.4 ML SYR SUBCUT SCH (10:06)
[2017-09-04] MEDS: Potassium Chlor TAB* 20 MEQ TAB.ER PO SCH ×2 (10:06→20:32)
--- NOTE | 2017-09-04 11:01 | PN ---
Progress Note - Progress Note Date of Service: 09/04/17 SOAP: Subjective: [This is a 77 yo female with bilateral BCA who completed her 2nd cycle of cyclophosphamide and docetaxel 08/30/17 who presented with c/o weakness that became more profound over the last 48 hrs. She had a temp of 100F in the ER, no focal symptoms. UA is now suggestive of UTI. Patient received IVF and is currently receiving her 2nd unit of PRBCs. This am, patient reports some improvement in her level of fatigue. She has been mobile to the commode. Denies cough, SOB, abd pain, n/v, or urinary complaints. No additional fevers since reaching the medical floor.] Objective: [ Vital Signs Temp Pulse Resp BP Pulse Ox 98.0 F 103 18 115/47 98 09/04/17 07:46 09/04/17 07:46 09/04/17 09:50 09/04/17 07:46 09/04/17 07:46 Laboratory Results - last 24 hr 09/04/17 09/04/17 09/04/17 04:13 04:13 04:13 WBC 0.3 L RBC 2.48 L Hgb 7.5 L Hct 22 L MCV 89 MCH 30 MCHC 34 RDW 15 Plt Count 170 MPV 7 L Neut % (Auto) 58.4 Lymph % (Auto) 31.7 [place] % (Auto) 8.2 H Eos % (Auto) 0 Baso % (Auto) 1.7 Absolute Neuts (auto) 0.2 L* Absolute Lymphs (auto) 0.1 L Absolute Monos (auto) 0 Absolute Eos (auto) 0 Absolute Basos (auto) 0 Absolute Nucleated RBC 0 Immature Gran % 1 Neutrophils % 55 Band Neutrophils % 1 Lymphocytes % 31 Reactive Lymphs % 1 Monocytes % 12 H Nucleated RBC % 0 Normal RBC Morphology Not Reportable Hypochromasia 1+ Hem Pathologist Commnt INR (Anticoag Therapy) APTT Sodium 128 L Potassium 4.0 Chloride 97 L Carbon Dioxide 27 Anion Gap 4 BUN 8 Creatinine 0.71 Est GFR ( Amer) 102.7 Est GFR (Non-Af Amer) 79.8 BUN/Creatinine Ratio 11.3 Glucose 115 H Lactic Acid 0.8 Calcium 8.1 L Magnesium 2.0 Total Bilirubin 1.20 H AST 13 ALT 11 Alkaline Phosphatase 54 C-Reactive Protein 124.82 H Total Protein 5.5 L Albumin 2.5 L Globulin 3.0 Albumin/Globulin Ratio 0.8 L Amylase 27 L Lipase < 10 L TSH 3.33 Urine Color Urine Appearance Urine pH Ur Specific [place] Urine Protein Urine Ketones Urine Blood Urine Nitrate Urine Bilirubin Urine Urobilinogen Ur Leukocyte Esterase Urine WBC (Auto) Urine RBC (Auto) Ur Squamous Epith Cells Urine Bacteria Urine Glucose Blood Type Antibody Screen Crossmatch 09/04/17 09/04/17 09/04/17 04:13 04:43 07:40 WBC RBC Hgb Hct MCV MCH MCHC RDW Plt Count MPV Neut % (Auto) Lymph % (Auto) [place] % (Auto) Eos % (Auto) Baso % (Auto) Absolute Neuts (auto) Absolute Lymphs (auto) Absolute Monos (auto) Absolute Eos (auto) Absolute Basos (auto) Absolute Nucleated RBC Immature Gran % Neutrophils % Band Neutrophils % Lymphocytes % Reactive Lymphs % Monocytes % Nucleated RBC % Normal RBC Morphology Hypochromasia Hem Pathologist Commnt INR (Anticoag Therapy) 1.09 H APTT 30.6 Sodium Potassium Chloride Carbon Dioxide Anion Gap BUN Creatinine Est GFR ( Amer) Est GFR (Non-Af Amer) BUN/Creatinine Ratio Glucose Lactic Acid Calcium Magnesium Total Bilirubin AST ALT Alkaline Phosphatase C-Reactive Protein Total Protein Albumin Globulin Albumin/Globulin Ratio Amylase Lipase TSH Urine Color Yellow Urine Appearance Cloudy Urine pH 5.0 Ur Specific [place] 1.014 Urine Protein Negative Urine Ketones Negative Urine Blood 1+ A Urine Nitrate Positive A Urine Bilirubin Negative Urine Urobilinogen Positive A Ur Leukocyte Esterase 2+ A Urine WBC (Auto) 3+(>20/hpf) A Urine RBC (Auto) 2+(6-10/hpf) A Ur Squamous Epith Cells Present A Urine Bacteria 1+ A Urine Glucose Negative Blood Type O Positive Antibody Screen Negative Crossmatch See Detail Atorvastatin Calcium (Lipitor*) 10 mg PO BEDTIME [facility] Enoxaparin Sodium (Lovenox(*)) 40 mg SUBCUT Q24H [facility] Last Admin: 09/04/17 10:06 Dose: 40 mg Filgrastim-Sndz (Zarxio*) 480 mcg SUBCUT DAILY [facility] Sodium Chloride (Ns 0.9% 1000 Ml*) 1,000 mls @ 150 mls/hr IV PER RATE [facility] Stop: 09/05/17 12:24 Last Admin: 09/04/17 07:08 Dose: 150 mls/hr Cefepime HCl (Maxipime 2 Gm In Dextrose Duplex (*)) 2 gm in 50 mls @ 100 mls/ hr IV Q24H [facility] Levothyroxine Sodium (Synthroid Tab*) 100 mcg PO 0600 [facility] Last Admin: 09/04/17 10:05 Dose: 100 mcg Loperamide HCl (Imodium Cap*) 2 mg PO .SEE DIRECTIONS PRN PRN Reason: DIARRHEA Orphenadrine 100 Mg 100 mg PO BID PRN PRN Reason: PAIN Pto Nf Med* Nabumetone 750mg Tabh 1 dose PO DAILY [facility] Omeprazole (Prilosec Cap*) 40 mg PO DAILY [facility] Last Admin: 09/04/17 10:05 Dose: 40 mg Ondansetron HCl (Zofran Inj*) 4 mg IV Q6H PRN PRN Reason: NAUSEA Potassium Chloride (Klor Con Er Tab*) 20 meq PO BID [facility] Last Admin: 09/04/17 10:06 Dose: 20 meq Gen: Elderly female lying in hosp bed in [facility] CV: RRR, no m/r/g Resp: lungs CTA Abd: soft, non TTP Ext: No edema Skin: partial alopecia, no rashes] Assessment: [This is a 77 yo female with bilateral BCA who recently completed her 2nd cycle of chemotherapy and presented with c/o severe fatigue, found to be febrile with neutropenia] Plan: [1. Neutropenic fever - ANC 200 at admission (day 5 post chemo) with neutropenia expected to persist for several additional days. Source of infection appears to be urine based on UA. Blood and urine cxs pending. Cont cefepime. Start neupogen with daily monitoring of ANC. Neutropenic precautions. 2. Anemia - likely chemo related toxicity, receiving 2U PRBCs, repeat CBC in am 3. Hyponatremia - likely due to hypovolemia, repeat chemistries in am following rehydration with NS 4. BCA - completed 2nd cycle of cyclophosphamide/doctaxel 08/30/17. PT eval tomorrow to assess functional status. 5. DVT prophylaxis - SQ lovenox
[2017-09-04] MEDS ORDERED: Acetaminophen TAB* 325 MG PO ONE (13:00)
[2017-09-04] MEDS: FILGRASTIM-SNDZ* 480 MCG/0.8 ML SYRINGE SUBCUT SCH (13:44)
[2017-09-04] MEDS: Cefepime 2 GM in Dextrose(*) 2 GM/50 ML BAG IV SCH (13:45)
--- NOTE | 2017-09-04 17:23 | HP ---
CC: Dr. Mota; Dr. Camacho. * HISTORY AND PHYSICAL: DATE OF ADMISSION: 09/04/17 PRIMARY CARE PROVIDER: Dr. Mota. ONCOLOGIST: Dr. Camacho. CHIEF COMPLAINT: Weakness. HISTORY OF PRESENT ILLNESS: Ms. Hollins is a 77-year-old female who in the fall to winter of 2016 was diagnosed with bilateral breast cancer and underwent right mastectomy, left lumpectomy and bilateral sentinel node biopsies and has since been started on chemotherapy who now presents to the emergency room with complaints of weakness. The patient states that she just had her second round of chemotherapy this past 08/30/17. She states following that, she has had no ambition, no energy. She states overall she feels very run down. She feels generalized weakness. There is nothing focal. She denies any fevers. She does state that she has been having diarrhea and has been using Imodium every couple of days. She denies any recent cold symptoms or dysuria. She denies any recent sick contacts. PAST MEDICAL HISTORY: 1. Bilateral breast cancer. 2. Hypertension. 3. Hyperlipidemia. 4. COPD. 5. Melanoma of the right lower extremity. 6. Mild cognitive impairment. PAST SURGICAL HISTORY: 1. Bilateral cataract extractions. 2. Laparoscopic cholecystectomy. 3. Iridotomies bilaterally. 4. Melanoma excision. 5. Left thumb surgery. 6. Hysterectomy with right oophorectomy. 7. Right mastectomy, left lumpectomy and bilateral sentinel node biopsies. MEDICATIONS: 1. Omeprazole 40 mg p.o. daily. 2. Synthroid 100 mcg p.o. daily. 3. Amlodipine 5 mg p.o. daily. 4. Potassium chloride 20 mEq p.o. b.i.d. 5. Simvastatin 20 mg p.o. q.h.s. 6. Orphenadrine 100 mg p.o. b.i.d. p.r.n. pain. 7. Zofran 4 mg p.o. q.4 hours p.r.n. nausea. 8. Prochlorperazine 10 mg p.o. q.6 hours p.r.n. nausea. 9. Nabumetone 375 mg p.o. daily. 10. Imodium A-D p.r.n. ALLERGIES: CHLORAPREP, VISIPAQUE, and PROHANCE. FAMILY HISTORY: Mother of COPD. She also had cancer. Father of an myocardial infarction. SOCIAL HISTORY: The patient is a former smoker, she quit in 1987. She smoked 1 pack per day for 20 to 30 years. She denies any alcohol use. She is retired from . She is . She has 3 children. She indicates that her son, Paresh Hollins or her daughter, Lalita Marks, are her healthcare proxies. REVIEW OF SYSTEMS: The patient denies any fevers or chills. She states her appetite has been very good over the last couple of days. She does state that she is down 5 pounds recently. No chest pain. No palpitations. No edema. No cough. She has mild shortness of breath. She admits to nausea and diarrhea. She denies any abdominal pain. No hematochezia. No hematuria. No dysuria. She admits to generalized weakness. No sudden changes or loss of vision. No dysphagia. No joint pain or muscle pain out of the ordinary. No rashes. No anxiety. No depression. PHYSICAL EXAMINATION GENERAL: The patient is a well-developed elderly female, sitting in the stretcher, in no acute distress. VITAL SIGNS: Blood pressure 105/57, pulse 117, respirations 18, temp 99.7, O2 sat 97% on room air. HEENT: Pupils are equal and round. Extraocular muscles are intact. Oropharynx is clear. Oral mucosa is dry. There is no submandibular, cervical or supraclavicular adenopathy. Thyroid is not enlarged. No thyroid nodules are noted. PULMONARY: Lungs are clear to auscultation bilaterally, though breath sounds are diminished. CARDIAC: Normal S1 and S2. Heart rate is tachycardic, but regular. There is no lower extremity edema. ABDOMEN: Bowel sounds are present. Abdomen is soft, nontender, nondistended. MUSCULOSKELETAL: There is no cyanosis or clubbing of the digits. There is full active range of motion of all 4 extremities. NEURO: Cranial nerves II through XII are grossly intact. Sensation is intact to light touch throughout. Strength is 5/5 and symmetric, both upper and lower extremities bilaterally. SKIN: Warm and dry. There are no rashes. PSYCH: The patient is alert. She is oriented x3. Affect appears appropriate. DIAGNOSTIC STUDIES/LAB DATA: WBC 0.3, hemoglobin 7.5, hematocrit 22, platelets 170,000. INR 1.09. Sodium 128, potassium 4.0, chloride 97, CO2 27, BUN 8, creatinine 0.71, glucose 115, lactic acid 0.8, calcium 8.1, magnesium 2.0. Bilirubin 1.2, AST 13, ALT 11, alk phos 54. CRP 124.82, albumin 2.5. Amylase 27, lipase less than 10. TSH 3.33. EKG reveals sinus tachycardia without any acute ST-T wave abnormalities. Chest x-rays appears to be clear to my evaluation. ASSESSMENT AND PLAN: Ms. Hollins is a 77-year-old female who just received her second round of chemotherapy for bilateral breast cancer and now presents to the emergency room with complaints of weakness and was found to be significantly anemic and hyponatremic. 1. Weakness. I suspect this is multifactorial from volume depletion, anemia and her recent chemotherapy. The patient will be treated for each of these conditions. We will monitor her symptom of weakness. Stool guaiac will be sent to rule out GI bleeding as the source of her anemia. 2. Anemia. This is likely chemotherapy-induced anemia. The patient's hemoglobin on 08/18/17 was normal at 12.4. This has steadily trended down over the last couple of weeks. The patient has been ordered 2 units of packed red blood cells through the emergency room. The first is hanging at this time. Her hemoglobin and hematocrit will be followed. 3. Neutropenia with borderline fever. The patient is markedly neutropenic with an ANC of 0.2. She has not had a true fever of 100.4 or greater; however, her temperatures by temporal artery scanning have been borderline at 100. Given she is going to be hospitalized, I will start her on cefepime 2 g IV q.12 hours. We will monitor for clear signs of infection. She did have blood cultures sent. Urinalysis is ordered, but yet to be sent. The patient's CBC will be monitored routinely. 4. Hyponatremia. I feel the patient's hyponatremia is likely secondary to volume depletion. She clinically appears to be on the dry side and by history, she reports feeling dehydrated. The patient will continue to receive normal saline at 150 mL per hour x2 more liters. Her sodium level will be rechecked tomorrow. 5. Hypertension. The patient's blood pressure is low normal at this point. I am going to hold her amlodipine for now. 6. Hyperlipidemia. We will continue simvastatin at bedtime. 7. Nausea and diarrhea. The patient will continue with p.r.n. Zofran and Imodium. 8. Hypothyroidism. We will continue Synthroid 100 mcg daily. 9. Gastroesophageal reflux disease. Continue omeprazole. 10. DVT prophylaxis. According to the Adult Thrombosis Prophylaxis Risk Factor Assessment Guide, the patient has a total risk factor score of 6 making her the highest risk. As her platelet count is still within the normal range at this point, SCDs and Lovenox will be utilized as DVT prophylaxis. 11. Code status is full. TIME SPENT: Sixty-five minutes was spent admitting this patient. [id number]/[facility] #: [id number] [place]
[2017-09-04] MEDS: Atorvastatin* 10 MG TAB PO SCH (20:32)
[2017-09-05 05:05] LABS: Hematocrit 25 % (35-47); Hemoglobin 8.1 g/dl (12.0-16.0); Mean Corpuscular HGB Conc 33 g/dl (31-36); Mean Corpuscular Hemoglobin 29 pg (27-31); Mean Corpuscular Volume 86 fL (80-97); Mean Platelet Volume 7 um3 (7.4-10.4); Platelet Count 115 10^3/ul (150-450); Red Blood Count 2.85 10^6/ul (4.0-5.4); Red Cell Distribution Width 17 % (10.5-15); White Blood Count 0.4 10^3/ul (3.5-10.8)
[2017-09-05 06:11] LABS: Monocytes % 9 % (0-7)
[2017-09-05] MEDS: Enoxaparin(*) 40 MG/0.4 ML SYR SUBCUT SCH (06:43)
[2017-09-05] MEDS: Levothyroxine TAB* 100 MCG TAB PO SCH (06:43)
[2017-09-05] MEDS: NABUMETONE 750 MG PO SCH (09:40)
[2017-09-05] MEDS: Omeprazole CAP* 20 MG PO SCH (09:40)
[2017-09-05] MEDS: Potassium Chlor TAB* 20 MEQ TAB.ER PO SCH ×2 (09:41→21:44)
[2017-09-05] MEDS: FILGRASTIM-SNDZ* 480 MCG/0.8 ML SYRINGE SUBCUT SCH (09:42)
[2017-09-05] MEDS: Cefepime 2 GM in Dextrose(*) 2 GM/50 ML BAG IV SCH (11:52)
[2017-09-05] MEDS: Atorvastatin* 10 MG TAB PO SCH (21:44)
[2017-09-06] MEDS: Enoxaparin(*) 40 MG/0.4 ML SYR SUBCUT SCH (05:11)
[2017-09-06] MEDS: Levothyroxine TAB* 100 MCG TAB PO SCH (05:11)
[2017-09-06 08:51] LABS: Hematocrit 29 % (35-47); Hemoglobin 9.7 g/dl (12.0-16.0); Mean Corpuscular HGB Conc 34 g/dl (31-36); Mean Corpuscular Hemoglobin 29 pg (27-31); Mean Corpuscular Volume 86 fL (80-97); Mean Platelet Volume 7 um3 (7.4-10.4); Platelet Count 165 10^3/ul (150-450); Red Blood Count 3.34 10^6/ul (4.0-5.4); Red Cell Distribution Width 17 % (10.5-15); White Blood Count 0.6 10^3/ul (3.5-10.8)
[2017-09-06] MEDS: Potassium Chlor TAB* 20 MEQ TAB.ER PO SCH ×2 (09:45→20:17)
[2017-09-06] MEDS: Omeprazole CAP* 20 MG PO SCH (09:46)
[2017-09-06] MEDS: FILGRASTIM-SNDZ* 480 MCG/0.8 ML SYRINGE SUBCUT SCH (09:46)
[2017-09-06 09:55] LABS: EGFR Non-African American 93.3 (>60)
[2017-09-06] MEDS: NABUMETONE 750 MG PO SCH (10:03)
[2017-09-06 10:25] LABS: Monocytes % 37 % (0-7)
--- NOTE | 2017-09-06 11:48 | PN ---
Progress Note - Progress Note Date of Service: 09/06/17 SOAP: Subjective: [Shanti offers no acute complaints. Her strength and fatigue are improving. She has occasional loose stool. No abd pain, n/v. She reports food isn't terribly appetizing, but she is eating. ] Objective: [ Laboratory Results - last 24 hr 09/06/17 09/06/17 08:23 08:24 WBC 0.6 L RBC 3.34 L Hgb 9.7 L Hct 29 L MCV 86 MCH 29 MCHC 34 RDW 17 H Plt Count 165 MPV 7 L Neut % (Auto) Not Reportable Lymph % (Auto) Not Reportable [place] % (Auto) Not Reportable Eos % (Auto) Not Reportable Baso % (Auto) Not Reportable Absolute Neuts (auto) Not Reportable Absolute Lymphs (auto) Not Reportable Absolute Monos (auto) Not Reportable Absolute Eos (auto) Not Reportable Absolute Basos (auto) Not Reportable Absolute Nucleated RBC Not Reportable Neutrophils % 2 L Lymphocytes % 43 Reactive Lymphs % 18 H D Monocytes % 37 H Eosinophils % 0 Basophils % 0 Nucleated RBC % Not Reportable Abs Neuts (Manual) 0 L* Abs Monocytes (Manual) 0.2 Absolute Eos (Manual) 0 Abs Basophils (Manual) 0 Nucleated RBCs/100 WBC 0 Differential Comment Normal RBC Morphology Normal Sodium 132 L Potassium 3.5 Chloride 100 L Carbon Dioxide 26 Anion Gap 6 BUN 8 Creatinine 0.62 Est GFR ( Amer) 120.0 Est GFR (Non-Af Amer) 93.3 BUN/Creatinine Ratio 12.9 Glucose 89 Calcium 8.7 Monoscreen Cancelled Atorvastatin Calcium (Lipitor*) 10 mg PO BEDTIME [facility] Last Admin: 09/05/17 21:44 Dose: 10 mg Enoxaparin Sodium (Lovenox(*)) 40 mg SUBCUT Q24H [facility] Last Admin: 09/06/17 05:11 Dose: 40 mg Filgrastim-Sndz (Zarxio*) 480 mcg SUBCUT DAILY [facility] Last Admin: 09/06/17 09:46 Dose: 480 mcg Cefepime HCl (Maxipime 2 Gm In Dextrose Duplex (*)) 2 gm in 50 mls @ 100 mls/ hr IV Q24H [facility] Last Admin: 09/05/17 11:52 Dose: 100 mls/hr Levothyroxine Sodium (Synthroid Tab*) 100 mcg PO 0600 [facility] Last Admin: 09/06/17 05:11 Dose: 100 mcg Loperamide HCl (Imodium Cap*) 2 mg PO .SEE DIRECTIONS PRN PRN Reason: DIARRHEA Pto Orphenadrine Er (100 Mg) 100 mg PO BID PRN PRN Reason: PAIN Pto Nf Med* Nabumetone 750mg Tabh 1 dose PO DAILY [facility] Last Admin: 09/06/17 10:03 Dose: Not Given Omeprazole (Prilosec Cap*) 40 mg PO DAILY [facility] Last Admin: 09/06/17 09:46 Dose: 40 mg Ondansetron HCl (Zofran Inj*) 4 mg IV Q6H PRN PRN Reason: NAUSEA Potassium Chloride (Klor Con Er Tab*) 20 meq PO BID [facility] Last Admin: 09/06/17 09:45 Dose: 20 meq Vital Signs Temp Pulse Resp BP Pulse Ox 98.2 F 102 20 133/64 98 09/06/17 11:25 09/06/17 11:25 09/06/17 11:25 09/06/17 11:25 09/06/17 11:25 Gen: Elderly female lying comfortably in recliner, in NAD HEENT: NCAT, MMM, no lesions CV: No m/r/g Resp: Lungs CTA, no w/c/r Abd: Soft, non TTP Ext: trace edema Skin: No rashes, partial alopecia] Assessment: [This is a 77 yo female with bilateral BCA who recently completed her 2nd cycle of chemotherapy and presented with c/o severe fatigue, found to be febrile with neutropenia] Plan: [1. Neutropenic fever - Urine source, blood cx neg. Cont cefepime. Cont neupogen with daily monitoring of ANC. Neutropenic precautions. 2. Anemia - likely chemo related toxicity s/p 2U PRBCs Hgb stable 3. Hyponatremia - improved 4. BCA - completed 2nd cycle of cyclophosphamide/doctaxel 08/30/17. 5. DVT prophylaxis - SQ lovenox Dispo: Cont inpatient care until ANC recovers, then anticipate dc home]
[2017-09-06] MEDS: Cefepime 2 GM in Dextrose(*) 2 GM/50 ML BAG IV SCH (13:15)
[2017-09-06] MEDS: Cefepime(*) 2 GM in NS 0.9% 50 ML* 50 ML IVPB SCH (14:32)
[2017-09-06] MEDS: Atorvastatin* 10 MG TAB PO SCH (20:17)
[2017-09-07 05:44] LABS: Hematocrit 25 % (35-47); Hemoglobin 8.5 g/dl (12.0-16.0); Mean Corpuscular HGB Conc 34 g/dl (31-36); Mean Corpuscular Hemoglobin 29 pg (27-31); Mean Corpuscular Volume 85 fL (80-97); Mean Platelet Volume 7 um3 (7.4-10.4); Platelet Count 159 10^3/ul (150-450); Red Blood Count 2.97 10^6/ul (4.0-5.4); Red Cell Distribution Width 16 % (10.5-15)
[2017-09-07 05:58] LABS: EGFR Non-African American 100.8 (>60)
[2017-09-07] MEDS: Levothyroxine TAB* 100 MCG TAB PO SCH (07:08)
[2017-09-07] MEDS: Enoxaparin(*) 40 MG/0.4 ML SYR SUBCUT SCH (07:08)
[2017-09-07 07:47] LABS: Monocytes % 29 % (0-7)
[2017-09-07] MEDS: Omeprazole CAP* 20 MG PO SCH (08:06)
[2017-09-07] MEDS: Potassium Chlor TAB* 20 MEQ TAB.ER PO SCH ×2 (08:07→19:37)
[2017-09-07] MEDS: NABUMETONE 750 MG PO SCH (08:07)
[2017-09-07] MEDS: FILGRASTIM-SNDZ* 480 MCG/0.8 ML SYRINGE SUBCUT SCH (08:07)
--- NOTE | 2017-09-07 10:40 | PN ---
Progress Note - Progress Note Date of Service: 09/07/17 SOAP: Subjective: [Shanti reports that she is feeling quite well. Offers no new complaints. Ambulating without difficulty. No cough, SOB, abd pain, n/v. Patient expressed a potential desire to discontinue further chemotherapy.] Objective: [ Atorvastatin Calcium (Lipitor*) 10 mg PO BEDTIME [facility] Last Admin: 09/06/17 20:17 Dose: 10 mg Enoxaparin Sodium (Lovenox(*)) 40 mg SUBCUT Q24H [facility] Last Admin: 09/07/17 07:08 Dose: 40 mg Filgrastim-Sndz (Zarxio*) 480 mcg SUBCUT DAILY [facility] Last Admin: 09/07/17 08:07 Dose: 480 mcg Cefepime HCl 2 gm/ Sodium (Chloride) 50 mls @ 100 mls/hr IVPB Q24H [facility] Last Admin: 09/06/17 14:32 Dose: 100 mls/hr Levothyroxine Sodium (Synthroid Tab*) 100 mcg PO 0600 [facility] Last Admin: 09/07/17 07:08 Dose: 100 mcg Loperamide HCl (Imodium Cap*) 2 mg PO .SEE DIRECTIONS PRN PRN Reason: DIARRHEA Pto Orphenadrine Er (100 Mg) 100 mg PO BID PRN PRN Reason: PAIN Pto Nf Med* Nabumetone 750mg Tabh 1 dose PO DAILY [facility] Last Admin: 09/07/17 08:07 Dose: Not Given Omeprazole (Prilosec Cap*) 40 mg PO DAILY [facility] Last Admin: 09/07/17 08:06 Dose: 40 mg Ondansetron HCl (Zofran Inj*) 4 mg IV Q6H PRN PRN Reason: NAUSEA Potassium Chloride (Klor Con Er Tab*) 20 meq PO BID [facility] Last Admin: 09/07/17 08:07 Dose: 20 meq Laboratory Results - last 24 hr 09/06/17 09/07/17 09/07/17 08:24 05:09 05:10 WBC 0.6 L 2.0 L RBC 3.34 L 2.97 L Hgb 9.7 L 8.5 L Hct 29 L 25 L MCV 86 85 MCH 29 29 MCHC 34 34 RDW 17 H 16 H Plt Count 165 159 MPV 7 L 7 L Neut % (Auto) Not Reportable Lymph % (Auto) Not Reportable [place] % (Auto) Not Reportable Eos % (Auto) Not Reportable Baso % (Auto) Not Reportable Absolute Neuts (auto) Not Reportable Absolute Lymphs (auto) Not Reportable Absolute Monos (auto) Not Reportable Absolute Eos (auto) Not Reportable Absolute Basos (auto) Not Reportable Absolute Nucleated RBC Not Reportable Immature Gran % 8 Neutrophils % 2 L 22 L Band Neutrophils % 3 Lymphocytes % 43 32 Reactive Lymphs % 18 H D 7 H D Monocytes % 37 H 29 H Eosinophils % 0 2 Basophils % 0 0 Metamyelocytes % 2 Myelocytes % 3 H Nucleated RBC % Not Reportable Abs Neuts (Manual) 0 L* 0.4 L* Abs Monocytes (Manual) 0.2 0.6 Absolute Eos (Manual) 0 0 Abs Basophils (Manual) 0 0 Nucleated RBCs/100 WBC 0 Differential Comment Normal RBC Morphology Normal Normal Hem Pathologist Commnt Sodium 131 L Potassium 3.7 Chloride 100 L Carbon Dioxide 26 Anion Gap 5 BUN 8 Creatinine 0.58 Est GFR ( Amer) 129.6 Est GFR (Non-Af Amer) 100.8 BUN/Creatinine Ratio 13.8 Glucose 87 Calcium 8.5 L Monoscreen Cancelled Vital Signs Temp Pulse Resp BP Pulse Ox 98.1 F 110 20 126/70 96 09/07/17 07:33 09/07/17 07:33 09/07/17 08:00 09/07/17 07:33 09/07/17 07:33 Gen: Elderly female lying comfortably in recliner, in NAD HEENT: NCAT, MMM, no lesions CV: No m/r/g Resp: Occasional wheeze appreciated in upper lung rus[place], otherwise clear Abd: Soft, non TTP Ext: trace edema Skin: No rashes, partial alopecia] Assessment: [This is a 77 yo female with bilateral BCA who recently completed her 2nd cycle of chemotherapy and presented with c/o severe fatigue, found to be febrile with neutropenia] Plan: [1. Neutropenic fever - Noted improvement in ANC to 400 today Urine source, blood cx neg. Cont cefepime. Cont neupogen with daily monitoring of ANC. Neutropenic precautions. 2. Anemia - likely chemo related toxicity s/p 2U PRBCs Hgb stable 3. Hyponatremia - improved 4. BCA - completed 2nd cycle of cyclophosphamide/doctaxel 08/30/17. Plan to discuss dose reduction or discontinuation of chemotherapy with Dr Camacho following discharge. 5. DVT prophylaxis - SQ lovenox Dispo: Cont inpatient care until ANC recovers, then anticipate dc home, likely in 1-2 days]
[2017-09-07] MEDS: Cefepime(*) 2 GM in NS 0.9% 50 ML* 50 ML IVPB SCH (14:12)
[2017-09-07] MEDS: Atorvastatin* 10 MG TAB PO SCH (19:37)
[2017-09-08 05:06] LABS: Hematocrit 27 % (35-47); Hemoglobin 9.1 g/dl (12.0-16.0); Mean Corpuscular HGB Conc 34 g/dl (31-36); Mean Corpuscular Hemoglobin 29 pg (27-31); Mean Corpuscular Volume 85 fL (80-97); Mean Platelet Volume 8 um3 (7.4-10.4); Platelet Count 179 10^3/ul (150-450); Red Blood Count 3.16 10^6/ul (4.0-5.4); Red Cell Distribution Width 17 % (10.5-15); White Blood Count 12.3 10^3/ul (3.5-10.8)
[2017-09-08] MEDS: Enoxaparin(*) 40 MG/0.4 ML SYR SUBCUT SCH (05:07)
[2017-09-08] MEDS: Levothyroxine TAB* 100 MCG TAB PO SCH (05:07)
[2017-09-08 05:19] LABS: EGFR Non-African American 116.9 (>60)
[2017-09-08 08:33] LABS: Monocytes % 17 % (0-7)
[2017-09-08] MEDS: NABUMETONE 750 MG PO SCH (08:36)
[2017-09-08] MEDS: Omeprazole CAP* 20 MG PO SCH (08:36)
[2017-09-08] MEDS: Potassium Chlor TAB* 20 MEQ TAB.ER PO SCH (08:36)
[2017-09-08 11:56] VITALS: BP 126/59
--- NOTE | 2017-09-08 16:32 | DS ---
CC: Dr. Camacho; Martha Mota MD * DISCHARGE SUMMARY: DATE OF ADMISSION: 09/04/17 DATE OF DISCHARGE: 09/08/17 ATTENDING PHYSICIAN: Elias Tello MD.* (DICTATED BY ANNAMARIE DE LEON) PRIMARY CARE PROVIDER: Martha Mota MD. DISCHARGING PROVIDER: ANNAMARIE De Leon. PRIMARY DISCHARGE DIAGNOSES: 1. Neutropenic fever. 2. Urinary tract infection. 3. Anemia status post transfusion of 2 units of packed red blood cells, likely chemo-related toxicity. 4. Hyponatremia, secondary to hypovolemia - improved. 5. Bilateral breast cancer status post second cycle of cyclophosphamide and docetaxel, 08/30/17. DISCHARGE MEDICATIONS: 1. Amlodipine 5 mg p.o. daily. 2. Vantin 200 mg p.o. twice daily x7days. 3. Levothyroxine 100 mcg p.o. daily. 4. Loperamide 2 mg p.o. q.3 hours as needed for diarrhea. 5. Nabumetone 375 mg p.o. daily. 6. Omeprazole 40 mg p.o. daily. 7. Zofran 4 mg p.o. q.4 hours as needed for nausea. 8. Orphenadrine 100 mg p.o. twice daily as needed. 9. Potassium chloride 20 mEq p.o. twice daily. 10. Compazine 10 mg p.o. q.6 hours as needed for nausea. 11. Simvastatin 20 mg p.o. at bedtime. MEDICATION CHANGES: Vantin x7 days. HOSPITAL IMAGING: Chest x-ray shows no acute process. HOSPITAL COURSE: This is a 77-year-old female with bilateral breast cancer under the care of Dr. Camacho who completed her second cycle of cyclophosphamide and docetaxel on 08/30/17. The patient presented to the emergency department via ambulance with profound fatigue and weakness and was noted to be febrile. She was markedly neutropenic at the time of admission with an ANC of 200. The patient was started on broad-spectrum antibiotics with cefepime. Her chest x- ray did not demonstrate significant infiltrates. Her urinalysis; however, suggested the presence of a urinary tract infection. Blood cultures were collected and remained negative for growth. The patient was anemic with a hemoglobin of 7.5 at the time of admission. She was transfused 2 units of packed red blood cells with appropriate response and no evidence of bleeding. She was also noted to be mildly hyponatremic with a sodium of 128 and was hydrated with normal saline with improvement. Due to the proximity to her recent chemotherapy treatment and her profound neutropenia with associated infection, patient received daily Neupogen until her ANC was greater than 500. The patient remained afebrile following admission with improvement in her strength. There were no complications to her hospital stay. Urine culture eventually grew greater than 100,000 colonies of a pansensitive E. coli as well as 50,000 to 75,000 colonies of Klebsiella. The patient seemed to respond appropriately to cefepime. DISPOSITION AND FOLLOWUP PLAN: The patient is being discharged to home where she lives independently in the senior apartment, but has close contact with both of her children, who help with several tasks around the house. The patient has been referred to [facility] and will follow up with Dr. Camacho next week to discuss further treatment planning. The patient is being discharged with 7 days of Vantin. ANNAMARIE DE LEON [id number]/[facility] #: [id number]
== END 2017-09-08 13:15 | disposition home or self-care (01) | DRG 809 ==
LOC: ED 03:29 → MEDTELE 05:45 → EEVIPCON 05:45
PROVIDERS: ADMIT Hospitalist; ATTEND Internal Medicine Hematology & Oncology
PROC: 30233N1 Transfusion of Nonautologous Red Blood Cells into Peripheral Vein, Percutaneous Approach (ICD-10-PCS; principal; 2017-09-04)
DX: D70.9 Neutropenia, unspecified (principal); E87.1 Hypo-osmolality and hyponatremia; C50.912 Malignant neoplasm of unspecified site of left female breast; N39.0 Urinary tract infection, site not specified; B96.1 Klebsiella pneumoniae [K. pneumoniae] as the cause of diseases classified elsewhere; D64.9 Anemia, unspecified; B96.20 Unspecified Escherichia coli [E. coli] as the cause of diseases classified elsewhere; E78.5 Hyperlipidemia, unspecified; E03.9 Hypothyroidism, unspecified; J44.9 Chronic obstructive pulmonary disease, unspecified; R50.81 Fever presenting with conditions classified elsewhere; I10 Essential (primary) hypertension; K21.9 Gastro-esophageal reflux disease without esophagitis; M81.0 Age-related osteoporosis without current pathological fracture; M19.90 Unspecified osteoarthritis, unspecified site; G31.84 Mild cognitive impairment of uncertain or unknown etiology; L65.8 Other specified nonscarring hair loss; T45.1X5A Adverse effect of antineoplastic and immunosuppressive drugs, initial encounter; Y92.239 Unspecified place in hospital as the place of occurrence of the external cause; E86.1 Hypovolemia; R11.0 Nausea; R19.7 Diarrhea, unspecified; F41.9 Anxiety disorder, unspecified; F32.9 Major depressive disorder, single episode, unspecified; Z98.51 Tubal ligation status; Z90.710 Acquired absence of both cervix and uterus; Z90.11 Acquired absence of right breast and nipple; Z90.49 Acquired absence of other specified parts of digestive tract; Z91.041 Radiographic dye allergy status; Z88.8 Allergy status to other drugs, medicaments and biological substances; Z90.721 Acquired absence of ovaries, unilateral; Z85.820 Personal history of malignant melanoma of skin; Z85.3 Personal history of malignant neoplasm of breast; Z86.19 Personal history of other infectious and parasitic diseases; Z98.42 Cataract extraction status, left eye; Z98.41 Cataract extraction status, right eye; Z87.891 Personal history of nicotine dependence; Z82.49 Family history of ischemic heart disease and other diseases of the circulatory system; Z82.5 Family history of asthma and other chronic lower respiratory diseases
CPT/HCPCS: 36415; 71045; 80048; 80053; 81003; 81015; 82150; 83605; 83690; 83735; 84443; 85025; 85060; 85610; 85730; 86078; 86140; 86850; 86900; 86901; 86922; 87040; 87077; 87086; 87186; 93005; 99232; 99239; 99284; A9270-GY; J0692; J1650; J2543; J3370; P9040; Q5101 ZA

== ENCOUNTER 2021-04-29 20:07 | Inpatient (IN) ==
[2021-04-29 22:46] LABS: INR 1.29 (0.86-1.15)
[2021-04-29 22:53] LABS: Hematocrit 37 % (35-47); Hemoglobin 11.9 g/dL (12.0-16.0); Mean Corpuscular HGB Conc 32 g/dL (31-36); Mean Corpuscular Hemoglobin 25 pg (27-31); Mean Corpuscular Volume 78 fL (80-97); Mean Platelet Volume 6.5 fL (7.4-10.4); Platelet Count 317 10^3/uL (150-450); Red Blood Count 4.71 10^6 /uL (3.70-4.87); Red Cell Distribution Width 19 % (10-15); White Blood Count 12.6 10^3/uL (3.5-10.8)
[2021-04-29 22:59] LABS: ALT 8 U/L (7-52); AST 9 U/L (13-39); Albumin 2.5 g/dL (3.2-5.2); Albumin/Globulin Ratio 0.6 (1-3); Alkaline Phosphatase 72 U/L (35-149); Anion Gap 8 mmol/L (2-11); Blood Urea Nitrogen 17 mg/dL (6-24); CO2 Carbon Dioxide 29 mmol/L (22-32); Calcium 9.2 mg/dL (8.6-10.3); Chloride 94 mmol/L (101-111); Creatine Kinase 17 U/L (10-223); Globulin 4.3 g/dL (2-4); Glucose 83 mg/dL (70-100); Potassium 3.4 mmol/L (3.5-5.0); Sodium 131 mmol/L (135-145); Total Protein 6.8 g/dL (6.4-8.9)
[2021-04-29 23:00] LABS: Alcohol, S < 13 mg/dL (<13); Salicylate < 2.50 mg/dL (<30)
[2021-04-29 23:01] LABS: Troponin I 0.01 ng/mL (<0.03)
[2021-04-29 23:13] LABS: TSH Ultra Thyroid Stim Horm 18.38 mcIU/mL (0.34-5.60)
[2021-04-29 23:16] LABS: Acetaminophen < 15 mcg/mL
[2021-04-30 00:28] LABS: ABS Neutrophils 10.2 10^3/ul (1.5-7.7); RBC Morphology Normal (Normal)
[2021-04-30 00:29] LABS: ABS Lymphocytes 2.1 10^3/ul (1.0-4.8)
[2021-04-30] MEDS ORDERED: cefTRIAXone 1 gm/50 mL NS BAG 1 GM/50 ML BAG IV ONE (06:24)
[2021-04-30 06:47] LABS: Urine Appearance Cloudy; Urine Bilirubin Negative (Negative); Urine Blood 1+ (Negative); Urine Color Amber; Urine Glucose Negative (Negative); Urine Ketones 1+ (Negative); Urine Nitrite Positive (Negative); Urine Protein 1+(30 mg/dL) (Negative); Urine Specific Gravity 1.018 (1.002-1.030); Urine Urobilinogen Positive (Negative)
[2021-04-30 06:53] LABS: Urine Bacteria 3+ (Absent); Urine Red Blood Cell 1+(3-5/hpf) (Absent); Urine Squamous Epithelial Cell Present (Absent); Urine White Blood Cell 3+(>20/hpf) (Absent)
[2021-04-30 07:29] LABS: Urine Benzodiazepine Screen None Detected (None Detect); Urine Cannabinoids Screen None Detected (None Detect); Urine Opiates Screen None Detected (None Detect)
[2021-04-30] MEDS ORDERED: NS 0.9% 1000 ml BAG 1,000 ML IV ONE (07:35)
[2021-04-30] MEDS ORDERED: Ondansetron 4 mg VIAL 2 MG/ML 2 ml VIAL IV PRN (07:40)
[2021-04-30] MEDS ORDERED: NS 0.9% 1000 ml BAG 1,000 ML IV SCH (07:45)
[2021-04-30 08:50] LABS: Free T4 0.79 ng/dL (0.61-1.12)
[2021-04-30 08:54] LABS: Total T3 52 ng/dL (87-178)
[2021-04-30] MEDS ORDERED: Donepezil HCL 10 mg TAB (NF) PO SCH (09:00)
[2021-04-30 09:51] LABS: Rapid COVID-19 Molecular Undetected (Undetected)
[2021-04-30] MEDS: Enoxaparin 40 MG/0.4 ML SYR SUBCUT SCH (11:44)
[2021-04-30] MEDS ORDERED: diPHENhydraMINE IV 50 MG/ML 1 ml VIAL (BENADRYL) IV ONE (23:59)
[2021-05-01] MEDS ORDERED: Iohexol 300 (CONTRAST) 10 ML SDV IV ONE (00:32)
[2021-05-01] MEDS ORDERED: cefTRIAXone 1 gm/50 mL NS BAG 1 GM/50 ML BAG IVPB SCH (07:30)
[2021-05-01] MEDS: Cefepime 2 GM in Dextrose 2 GM/50 ML BAG IV SCH ×2 (08:37→21:34)
[2021-05-01] MEDS: Enoxaparin 40 MG/0.4 ML SYR SUBCUT SCH (08:42)
[2021-05-01] MEDS: metroNIDAZOLE IV 500 MG/100ML 500 MG/100 ML BAG IVPB SCH ×2 (10:35→18:02)
[2021-05-01 11:22] LABS: Hematocrit 36 % (35-47); Hemoglobin 11.6 g/dL (12.0-16.0); Mean Corpuscular HGB Conc 32 g/dL (31-36); Mean Corpuscular Hemoglobin 25 pg (27-31); Mean Corpuscular Volume 78 fL (80-97); Mean Platelet Volume 6.8 fL (7.4-10.4); Platelet Count 349 10^3/uL (150-450); Red Cell Distribution Width 19 % (10-15); White Blood Count 16.4 10^3/uL (3.5-10.8)
[2021-05-01 11:46] LABS: Calcium 8.8 mg/dL (8.6-10.3); Potassium 3.5 mmol/L (3.5-5.0)
[2021-05-01 12:26] LABS: ABS Lymphocytes 0.8 10^3/ul (1.0-4.8); ABS Monocytes 0.8 10^3/ul (0-0.8); ABS Neutrophils 14.8 10^3/ul (1.5-7.7); Eosinophil % 0.1 %; Lymphocyte % 4.8 %
[2021-05-01 12:28] LABS: RBC Morphology Normal (Normal)
[2021-05-02] MEDS: metroNIDAZOLE IV 500 MG/100ML 500 MG/100 ML BAG IVPB SCH ×3 (01:05→16:20)
[2021-05-02 06:10] LABS: Hematocrit 33 % (35-47); Hemoglobin 10.7 g/dL (12.0-16.0); Mean Corpuscular HGB Conc 32 g/dL (31-36); Mean Corpuscular Hemoglobin 25 pg (27-31); Mean Corpuscular Volume 79 fL (80-97); Mean Platelet Volume 6.6 fL (7.4-10.4); Platelet Count 316 10^3/uL (150-450); Red Blood Count 4.21 10^6 /uL (3.70-4.87); Red Cell Distribution Width 19 % (10-15); White Blood Count 12.6 10^3/uL (3.5-10.8)
[2021-05-02 06:24] LABS: Calcium 8.5 mg/dL (8.6-10.3); Potassium 3.2 mmol/L (3.5-5.0)
[2021-05-02] MEDS: Cefepime 2 GM in Dextrose 2 GM/50 ML BAG IV SCH ×2 (07:45→19:41)
[2021-05-02] MEDS: Enoxaparin 40 MG/0.4 ML SYR SUBCUT SCH (07:51)
[2021-05-02 08:03] LABS: ABS Neutrophils 10.5 10^3/ul (1.5-7.7); Eosinophil % 0.2 %; Nucleated Red Blood Cells % 0.1
[2021-05-02 08:28] LABS: RBC Morphology Normal (Normal)
[2021-05-02] MEDS: Potassium Chlor 20 meq TAB.ER PO SCH ×2 (10:01→12:08)
[2021-05-02 14:44] LABS: C Reactive Protein 26.66 mg/L (<8.01)
[2021-05-02 16:17] LABS: C Reactive Protein 94.84 mg/L (<8.01)
[2021-05-03] MEDS: metroNIDAZOLE IV 500 MG/100ML 500 MG/100 ML BAG IVPB SCH ×3 (01:28→17:28)
[2021-05-03 06:25] LABS: Hematocrit 33 % (35-47); Hemoglobin 10.7 g/dL (12.0-16.0); Mean Corpuscular HGB Conc 32 g/dL (31-36); Mean Corpuscular Hemoglobin 26 pg (27-31); Mean Corpuscular Volume 79 fL (80-97); Mean Platelet Volume 6.4 fL (7.4-10.4); Platelet Count 282 10^3/uL (150-450); Red Blood Count 4.17 10^6 /uL (3.70-4.87); Red Cell Distribution Width 20 % (10-15); White Blood Count 9.3 10^3/uL (3.5-10.8)
[2021-05-03 06:50] LABS: ABS Eosinophils 0.1 10^3/ul (0-0.6); ABS Lymphocytes 0.8 10^3/ul (1.0-4.8); ABS Monocytes 0.9 10^3/ul (0-0.8); ABS Neutrophils 7.4 10^3/ul (1.5-7.7); Eosinophil % 0.7 %; Lymphocyte % 8.9 %; Nucleated Red Blood Cells % 0.1
[2021-05-03 06:55] LABS: Calcium 7.9 mg/dL (8.6-10.3); Potassium 3.3 mmol/L (3.5-5.0)
[2021-05-03] MEDS: Enoxaparin 40 MG/0.4 ML SYR SUBCUT SCH (11:05)
[2021-05-03] MEDS ORDERED: Cefepime 2 GM in Dextrose 2 GM/50 ML BAG IV SCH (12:30)
[2021-05-03] MEDS: Cefepime 2 GM in Dextrose 2 GM/50 ML BAG IV SCH (13:44)
[2021-05-03] MEDS: cefTRIAXone 1 gm/50 mL NS BAG 1 GM/50 ML BAG IVPB SCH (14:11)
[2021-05-04] MEDS: metroNIDAZOLE IV 500 MG/100ML 500 MG/100 ML BAG IVPB SCH ×3 (00:33→23:00)
[2021-05-04 05:56] LABS: Hematocrit 35 % (35-47); Hemoglobin 11.4 g/dL (12.0-16.0); Mean Corpuscular HGB Conc 33 g/dL (31-36); Mean Corpuscular Hemoglobin 26 pg (27-31); Mean Corpuscular Volume 79 fL (80-97); Mean Platelet Volume 6.5 fL (7.4-10.4); Platelet Count 273 10^3/uL (150-450); Red Blood Count 4.41 10^6 /uL (3.70-4.87); Red Cell Distribution Width 19 % (10-15); White Blood Count 7.3 10^3/uL (3.5-10.8)
[2021-05-04 06:05] LABS: Calcium 8.2 mg/dL (8.6-10.3); Magnesium 1.9 mg/dL (1.9-2.7); Potassium 3.2 mmol/L (3.5-5.0)
[2021-05-04 06:26] LABS: ABS Lymphocytes 0.9 10^3/ul (1.0-4.8); ABS Monocytes 0.6 10^3/ul (0-0.8); ABS Neutrophils 5.6 10^3/ul (1.5-7.7); Eosinophil % 0.7 %; Lymphocyte % 13.1 %
[2021-05-04] MEDS ORDERED: Potassium Chloride LIQUID 20 MEQ/15 ML LIQUID PO ONE (09:03)
[2021-05-04] MEDS: Enoxaparin 40 MG/0.4 ML SYR SUBCUT SCH (10:38)
[2021-05-04] MEDS: cefTRIAXone 1 gm/50 mL NS BAG 1 GM/50 ML BAG IVPB SCH (15:22)
[2021-05-05 11:46] VITALS: BP 122/59
== END 2021-05-05 09:30 | DRG 871 ==
LOC: ED 20:07 → EDHOLD 04-30 08:04 → SUATTDRO 04-30 08:04 → MEDTELE 04-30 08:05
PROVIDERS: ADMIT Student in an Organized Health Care Education/Training Program; ATTEND Hospitalist

== ENCOUNTER 2021-07-06 18:10 | Inpatient (IN) ==
[2021-07-06] MEDS ORDERED: Lactated Ringers 1000 ml BAG 1,000 ML IV ONE (18:31)
[2021-07-06 19:03] LABS: Hematocrit 35 % (35-47); Hemoglobin 11.2 g/dL (12.0-16.0); Mean Corpuscular HGB Conc 32 g/dL (31-36); Mean Corpuscular Hemoglobin 29 pg (27-31); Mean Corpuscular Volume 89 fL (80-97); Mean Platelet Volume 7.1 fL (7.4-10.4); Platelet Count 362 10^3/uL (150-450); Red Blood Count 3.91 10^6 /uL (3.70-4.87); Red Cell Distribution Width 19 % (10-15); White Blood Count 11.5 10^3/uL (3.5-10.8)
[2021-07-06 19:14] LABS: Urine Appearance Cloudy; Urine Bilirubin Negative (Negative); Urine Blood Negative (Negative); Urine Color Amber; Urine Glucose Negative (Negative); Urine Ketones Trace (Negative); Urine Nitrite Negative (Negative); Urine Protein Negative (Negative); Urine Specific Gravity 1.023 (1.002-1.030); Urine Urobilinogen Negative (Negative)
[2021-07-06 19:15] LABS: Activated Partial Thrombo Time 31.3 seconds (26.0-38.0); INR 1.63 (0.86-1.15)
[2021-07-06 19:21] LABS: ABS Lymphocytes 1.1 10^3/ul (1.0-4.8); ABS Monocytes 1.4 10^3/ul (0-0.8); ABS Neutrophils 8.7 10^3/ul (1.5-7.7); Eosinophil % 0.2 %; Nucleated Red Blood Cells % 0.1
[2021-07-06 19:26] LABS: Urine Bacteria 3+ (Absent); Urine Red Blood Cell 1+(3-5/hpf) (Absent); Urine Squamous Epithelial Cell Present (Absent); Urine White Blood Cell 2+(11-20/hpf) (Absent)
[2021-07-06 19:33] LABS: ALT 17 U/L (7-52); AST 30 U/L (13-39); Albumin 2.2 g/dL (3.2-5.2); Albumin/Globulin Ratio 0.7 (1-3); Alkaline Phosphatase 122 U/L (35-149); Blood Urea Nitrogen 42 mg/dL (6-24); C Reactive Protein 25.14 mg/L (<8.01); CO2 Carbon Dioxide 31 mmol/L (22-32); Calcium 9.7 mg/dL (8.6-10.3); Globulin 3.3 g/dL (2-4); Glucose 76 mg/dL (70-100); Total Protein 5.5 g/dL (6.4-8.9); eGFR CKD-EPI 54.6 (>60)
[2021-07-06 19:39] LABS: Chloride 119 mmol/L (101-111)
[2021-07-06 19:40] LABS: Anion Gap 8 mmol/L (2-11); Sodium 158 mmol/L (135-145)
[2021-07-06 19:42] LABS: Troponin I 0.09 ng/mL (<0.03)
[2021-07-06] MEDS ORDERED: Piperacillin/Tazobac ADVAN 3.375 GM in NS 0.9% 100 ml BAG 100 ML IV ONE (19:51)
[2021-07-06] MEDS ORDERED: Lactated Ringers 1000 ml BAG 1,000 ML IV SCH (20:00)
[2021-07-06] MEDS: KCL 20 MEQ/100 ML IVPREMIX 20 MEQ/100 ML BAG IV SCH ×2 (20:34→22:48)
[2021-07-06 21:41] LABS: Magnesium 2.2 mg/dL (1.9-2.7)
[2021-07-06 23:16] LABS: Troponin I 0.09 ng/mL (<0.03)
[2021-07-07 00:33] LABS: Phosphorus 2.8 mg/dL (2.5-5.0)
[2021-07-07 01:01] LABS: Albumin 2.2 g/dL (3.2-5.2); Albumin/Globulin Ratio 0.7 (1-3); Calcium 9.6 mg/dL (8.6-10.3); Globulin 3.3 g/dL (2-4); Potassium 4.1 mmol/L (3.5-5.0); Total Bilirubin 0.5 mg/dL (0.2-1.0); Total Protein 5.5 g/dL (6.4-8.9); eGFR CKD-EPI 59.4 (>60)
[2021-07-07 01:20] LABS: TSH Ultra Thyroid Stim Horm 24.19 mcIU/mL (0.34-5.60)
[2021-07-07] MEDS ORDERED: Lactated Ringers 1000 ml BAG 1,000 ML IV SCH (01:36)
[2021-07-07 05:45] LABS: Hematocrit 33 % (35-47); Hemoglobin 10.4 g/dL (12.0-16.0); Mean Corpuscular HGB Conc 32 g/dL (31-36); Mean Corpuscular Hemoglobin 28 pg (27-31); Mean Corpuscular Volume 90 fL (80-97); Mean Platelet Volume 7.1 fL (7.4-10.4); Platelet Count 336 10^3/uL (150-450); Red Blood Count 3.66 10^6 /uL (3.70-4.87); Red Cell Distribution Width 20 % (10-15); White Blood Count 12.9 10^3/uL (3.5-10.8)
[2021-07-07 05:55] LABS: ABS Eosinophils 0.1 10^3/ul (0-0.6); ABS Lymphocytes 1.2 10^3/ul (1.0-4.8); ABS Monocytes 1.1 10^3/ul (0-0.8); ABS Neutrophils 10.5 10^3/ul (1.5-7.7); Eosinophil % 0.6 %; Lymphocyte % 9.5 %; Nucleated Red Blood Cells % 0.2
[2021-07-07 06:04] LABS: Calcium 9.5 mg/dL (8.6-10.3); Potassium 3.6 mmol/L (3.5-5.0)
[2021-07-07 06:10] LABS: Phosphorus 2.5 mg/dL (2.5-5.0); eGFR CKD-EPI 64.2 (>60)
[2021-07-07] MEDS ORDERED: Potassium Chlor 20 meq TAB.ER PO ONE (07:05)
[2021-07-07] MEDS: Heparin 5000 UNITS/ML 1 mL VIAL SUBCUT SCH ×2 (08:19→20:37)
[2021-07-07] MEDS: Multivitamins ADULT w/MIN LIQ 15 ML UDC NG TUBE SCH (08:19)
[2021-07-07] MEDS ORDERED: Potassium Chloride LIQUID 20 MEQ/15 ML LIQUID PEG TUBE ONE (09:00)
[2021-07-07] MEDS: Lansoprazole SUSP ORALSYR 3 MG/ML G TUBE SCH (09:26)
[2021-07-07] MEDS: ACETAMINOPHEN 1 GM/100 ML IV PRN (13:43)
[2021-07-07] MEDS ORDERED: Piperacillin/Tazobac ADVAN 3.375 GM in NS 0.9% 100 ml BAG 100 ML IV ONE (16:30)
[2021-07-07] MEDS ORDERED: Zosyn per Pharmacy NOTE FOLLOW UP SCH (17:00)
[2021-07-07] MEDS: Lactated Ringers 1000 ml BAG 1,000 ML IV SCH (17:31)
[2021-07-07 17:48] LABS: Potassium 4.1 mmol/L (3.5-5.0); eGFR CKD-EPI 78.7 (>60)
[2021-07-07] MEDS: ZOSYN 3.375 GM Q8H per EXTENDED INFUSION IV SCH (20:38)
[2021-07-07] MEDS ORDERED: Lactated Ringers 500 ml BAG 500 ML IV ONE (22:23)
[2021-07-08 01:06] LABS: Calcium 8.6 mg/dL (8.6-10.3); Potassium 3.9 mmol/L (3.5-5.0); eGFR CKD-EPI 86.8 (>60)
[2021-07-08] MEDS: Lactated Ringers 1000 ml BAG 1,000 ML IV SCH (01:20)
[2021-07-08] MEDS: ZOSYN 3.375 GM Q8H per EXTENDED INFUSION IV SCH ×2 (05:28→13:27)
[2021-07-08 05:55] LABS: Hematocrit 31 % (35-47); Mean Corpuscular HGB Conc 32 g/dL (31-36); Mean Corpuscular Hemoglobin 29 pg (27-31); Mean Corpuscular Volume 91 fL (80-97); Mean Platelet Volume 7.3 fL (7.4-10.4); Platelet Count 317 10^3/uL (150-450); Red Blood Count 3.41 10^6 /uL (3.70-4.87); Red Cell Distribution Width 18 % (10-15); White Blood Count 9.9 10^3/uL (3.5-10.8)
[2021-07-08] MEDS ORDERED: Levothyroxine 100 MCG/5 ML VIAL IV SCH (06:00)
[2021-07-08 06:14] LABS: Calcium 8.6 mg/dL (8.6-10.3); Magnesium 1.7 mg/dL (1.9-2.7); Phosphorus 1.4 mg/dL (2.5-5.0); Potassium 3.7 mmol/L (3.5-5.0); eGFR CKD-EPI 82.6 (>60)
[2021-07-08 06:26] LABS: ABS Eosinophils 0.1 10^3/ul (0-0.6); ABS Monocytes 0.4 10^3/ul (0-0.8); ABS Neutrophils 8.3 10^3/ul (1.5-7.7); RBC Morphology Normal (Normal)
[2021-07-08] MEDS ORDERED: Magnesium Sulfate 2 gm BAG 2 GM/50 ML BAG IVPB ONE (07:41)
[2021-07-08] MEDS: Lansoprazole SUSP ORALSYR 3 MG/ML G TUBE SCH (07:59)
[2021-07-08] MEDS: Heparin 5000 UNITS/ML 1 mL VIAL SUBCUT SCH (07:59)
[2021-07-08] MEDS: Multivitamins ADULT w/MIN LIQ 15 ML UDC NG TUBE SCH (07:59)
[2021-07-08] MEDS ORDERED: Potassium Phosphate IV 15 MMOLE in NS 0.9% 250 ml 250 ML IVPB ONE (09:00)
[2021-07-08] MEDS ORDERED: Potassium & Sodium Phos 250 mg = 1 PACKET PO SCH ×2 (12:00→21:00)
[2021-07-08] MEDS ORDERED: Ondansetron 4 mg VIAL 2 MG/ML 2 ml VIAL IV PRN (18:42)
[2021-07-09] MEDS: Morphine ORAL CONCENTRATE 5 MG/0.25 ML ORAL.SYRIN SL PRN ×6 (03:05→16:19)
[2021-07-09] MEDS: ACETAMINOPHEN 1 GM/100 ML IV PRN (06:28)
[2021-07-09] MEDS ORDERED: Naloxone 0.4 mg VIAL 0.4 mg/ml 1 ml VIAL IV PUSH PRN (12:44)
[2021-07-09] MEDS ORDERED: Morphine PCA ADULT 5 MG/ML 30 ML PCA SCH (13:15)
[2021-07-09 14:09] VITALS: BP 100/50
[2021-07-10] MEDS: Morphine ORAL CONCENTRATE 5 MG/0.25 ML ORAL.SYRIN SL PRN (02:12)
[2021-07-11] MEDS ORDERED: Scopolamine PATCH Remove NOTE PATCH OFF SCH (19:00)
== END 2021-07-10 04:20 | disposition expired | DRG 871 ==
LOC: ED 18:10 → EDHOLD 22:16 → ICU 07-07 03:30 → MED 07-08 19:31
PROVIDERS: ADMIT Internal Medicine; ATTEND Internal Medicine